=== PATIENT | female | born 1940 | race Hispanic/Latino ===

== ENCOUNTER 2016-09-06 10:49 | Outpatient (CLI) | payer MEDICARE, OTHER ==
[2016-09-06 11:51] LABS: Blood Urea Nitrogen 10 mg/dL (7-17)
[2016-09-06] MEDS ORDERED: NACL ONE ×2 (12:18→12:54)
--- NOTE | 2016-09-06 14:07 | Cat Scan Report ---
CT UPPER EXTREMITY RIGHT WITHOUT CONTRAST History: Right forearm mass. Technique: Helical CT following IV contrast. Sagittal and coronal reformatted images. Findings: A marker is placed in the medial forearm. Underlying this marker is nonspecific subcutaneous fat stranding. There is no defined enhancing mass or fluid collection. This may represent an area of fibrosis. The muscular, osseous and vascular structures of the right forearm are within normal limits. Impression: Nonspecific subcutaneous fat stranding or fibrosis in the medial right forearm as detailed above. No suspicious mass or fluid collection. If further evaluation is needed MRI with contrast would provide more information.
== END 2016-09-06 10:50 | disposition home or self-care (01) ==
LOC: CT 10:49
PROVIDERS: ATTEND Radiology Diagnostic Radiology
DX: D21.11 Benign neoplasm of connective and other soft tissue of right upper limb, including shoulder (principal)
CPT/HCPCS: 36415; 73201; 82565; 84520; Q9967

== ENCOUNTER 2016-10-03 19:03 | Emergency (ER) | payer MEDICARE, OTHER ==
[2016-10-03 19:33] VITALS: BP 186/120
[2016-10-03 20:26] LABS: Hematocrit 39.7 % (30.3-42.9); Hemoglobin 13.1 gm/dl (10.1-14.3); Mean Corpuscular HGB Conc 33 % (30-34); Mean Corpuscular Hemoglobin 30 pg (28-32); Mean Corpuscular Volume 90 fl (79-97); Platelet Count 209 K/mm3 (140-440); Red Blood Count 4.42 M/mm3 (3.65-5.03); Red Cell Distribution Width 14.2 % (13.2-15.2); White Blood Count 7.9 K/mm3 (4.5-11.0)
[2016-10-03 21:02] LABS: Anion Gap 21 mmol/L; Blood Urea Nitrogen 9 mg/dL (7-17); Calcium 8.9 mg/dL (8.4-10.2); Carbon Dioxide 25 mmol/L (22-30); Chloride 97.8 mmol/L (98-107); Glucose 140 mg/dL (65-100); Potassium 4.6 mmol/L (3.6-5.0); Sodium 139 mmol/L (137-145)
[2016-10-03 21:57] LABS: Bacteria,Urine 1+ /HPF (Negative); Bilirubin,Urine NEG (Negative); Blood,Urine NEG (Negative); Ketones,Urine 20 mg/dL (Negative); Leukocyte Esterase,Urine NEG (Negative); Mucus,Urine FEW /HPF; Nitrite,Urine NEG (Negative); Urobilinogen,Urine < 2.0 mg/dL (<2.0)
== END 2016-10-03 23:05 | disposition left against medical advice (07) ==
LOC: ED 19:03
DX: R42 Dizziness and giddiness (principal); Z53.21 Procedure and treatment not carried out due to patient leaving prior to being seen by health care provider
CPT/HCPCS: 36415; 80048; 81001; 85027; 93005; 93010

== ENCOUNTER 2017-05-12 10:27 | Day surgery (SDC) | payer MEDICARE, OTHER ==
[~2017-05-12 10:27] MED LIST: ANCEF/STERILE WATER 2 GM/20 ML 2 GM/20 ML SYRINGE IV NR; NACL 0.9% 1000 ML 1,000 ML IV SCH
[2017-05-12 11:16] LABS: Basophils % (Auto) 0.6 % (0.0-1.8); Eosinophils % (Auto) 3.8 % (0.0-4.3); Hematocrit 39.5 % (30.3-42.9); Hemoglobin 13.1 gm/dl (10.1-14.3); Mean Corpuscular HGB Conc 33 % (30-34); Mean Corpuscular Hemoglobin 30 pg (28-32); Mean Corpuscular Volume 91 fl (79-97); Platelet Count 257 K/mm3 (140-440); Red Blood Count 4.33 M/mm3 (3.65-5.03); Red Cell Distribution Width 13.7 % (13.2-15.2); White Blood Count 5.4 K/mm3 (4.5-11.0)
[2017-05-12 11:33] LABS: INR 1.03 (0.87-1.13)
[2017-05-12 11:34] LABS: Partial Thromboplastin Time 27.5 Sec. (24.2-36.6)
[2017-05-12 13:25] VITALS: BP 151/62
--- NOTE | 2017-05-12 14:54 | Cat Scan Report ---
EXAM: CT-GUIDED BIOPSY OF THE RIGHT FOREARM MASS. CLINICAL INDICATION: PATIENT WITH A HISTORY OF A PROGRESSIVE GROWTH IN THE RIGHT FOREARM MASSES DATE: 05/12/2017 PROCEDURE: Following an explanation of the risks, benefits and alternative; written informed consent was obtained. The patient was brought to the angiographic suite and placed in right lateral oblique position with her arm extended above her head. Initial dehydrator tender images of the arm were performed and the 2 masses within the soft tissue of the right forearm were identified. An appropriate access site was chosen. The patient's right arm was prepped and draped in usual sterile fashion. 1% lidocaine was used for anesthesia. Using intermittent CT guidance, a 5 cm 18-gauge trocar needle was advanced to the margin of the masses. A total of 3 core biopsies were then obtained and handed off to pathologist in attendance. The biopsies were determined to be adequate for analysis. The trocar needle was removed and pressure dressing applied. The patient tolerated the procedure well. There were no immediate post procedure complications. No sedation was utilized at patient's request. Continuous cardiopulmonary monitoring was utilized. IMPRESSION: 1) CT guided biopsy of right forearm mass with 3 core samples obtained and sent for pathologic analysis.
== END 2017-05-12 13:50 | disposition home or self-care (01) ==
LOC: CATHLABREC 10:27
PROVIDERS: ATTEND Radiology Diagnostic Radiology
DX: C49.11 Malignant neoplasm of connective and soft tissue of right upper limb, including shoulder (principal); I10 Essential (primary) hypertension; E78.00 Pure hypercholesterolemia, unspecified; Z79.899 Other long term (current) drug therapy
CPT/HCPCS: 36415; 38505; 77012; 85025; 85610; 85730; 88173; 88305; 88307; 88333; 88342

== ENCOUNTER 2017-10-01 13:39 | Emergency (ER) | payer MEDICARE, OTHER ==
[2017-10-01 13:54] VITALS: BP 122/63
== END 2017-10-01 17:44 | disposition left against medical advice (07) ==
LOC: ED 13:39
DX: M79.605 Pain in left leg (principal); Z53.21 Procedure and treatment not carried out due to patient leaving prior to being seen by health care provider

== ENCOUNTER 2019-08-29 00:37 | Emergency (ER) | payer MEDICARE, OTHER ==
--- NOTE | 2019-08-29 01:08 | Emergency Department Report ---
HPI - General Chief Complaint: Arrhythmia/Palpitations Time Seen by Provider: 08/29/19 00:55 - HPI HPI: 78-year-old female presents to the emergency department via EMS from home after she had some tachycardia and palpitations just prior to arrival. The patient was sitting in a chair when she felt like her heart was racing and at that time she also felt short of breath. EMS was called and found her to have a heart rate of about 180. She denies any chest pain, back pain, fever, nausea, vomiting or diaphoresis. She has a past medical history of hypertension, hyperlipidemia and anxiety/panic attacks. The patient does admit to some recent personal stressors. She denies any tobacco or illicit drug use. She did not take anything or receive anything for her symptoms prior to arrival and the symptoms resolved prior to presentation. No recent travel or sick contacts at home. ED Past Medical Hx - Past Medical History Hx Hypertension: Yes Hx Kidney Stones: Yes (in past) Hx Psychiatric Treatment: Yes (panic attacks) Additional medical history: high cholesterol - Surgical History Hx Cholecystectomy: Yes - Social History Smoking Status: Never Smoker Substance Use Type: None - Medications Home Medications: Home Medications Medication Instructions Recorded Confirmed Last Taken Type Aspirin [Lo-Dose Aspirin EC] 81 mg PO QDAY 05/12/17 05/12/17 05/11/17 History Losartan Potassium 25 mg PO QDAY 05/12/17 05/12/17 05/11/17 History Simvastatin 20 mg PO QHS 05/12/17 05/12/17 05/11/17 History Venlafaxine Xr [Effexor XR] 75 mg PO QDAY 05/12/17 05/12/17 05/11/17 History ED Review of Systems ROS: Stated complaint: CHEST PAIN Other details as noted in HPI Comment: All other systems reviewed and negative Constitutional: denies: chills, fever Eyes: denies: eye pain, vision change Respiratory: shortness of breath. denies: cough Cardiovascular: palpitations. denies: chest pain Gastrointestinal: denies: abdominal pain, vomiting Genitourinary: denies: dysuria, discharge Musculoskeletal: denies: back pain, arthralgia Skin: denies: rash, lesions Neurological: denies: headache, weakness Physical Exam - Physical Exam Physical Exam: GENERAL: The patient is well-developed well-nourished. HENT: Normocephalic. Atraumatic. Patient has moist mucous membranes. Pupils equal reactive to light bilaterally. NECK: Supple. Trachea is midline. CHEST/LUNGS: Clear to auscultation. There is no respiratory distress noted. HEART/CARDIOVASCULAR: Regular. There is no tachycardia. There is no murmur. ABDOMEN: Abdomen is soft, nontender. Patient has normal bowel sounds. There is no abdominal distention. SKIN: Skin is warm and dry. NEURO: The patient is awake, alert, and oriented. The patient is cooperative. The patient has no focal neurologic deficits. Normal speech. MUSCULOSKELETAL: There is no tenderness or deformity. There is no limitation range of motion. There is no evidence of acute injury. ED Course - Reevaluation(s) Reevaluation #1: 08/29/19 04:25 Wells' Criteria for Pulmonary Embolism RESULT SUMMARY: 0.0 points Low risk group: 1.3% chance of PE in an ED population. Another study assigned scores ? 4 as PE Unlikely and had a 3% incidence of PE. INPUTS: Clinical signs and symptoms of DVT > 0 = No PE is #1 diagnosis OR equally likely > 0 = No Heart rate > 100 > 0 = No Immobilization at least 3 days OR surgery in the previous 4 weeks > 0 = No Previous, objectively diagnosed PE or DVT > 0 = No Hemoptysis > 0 = No Malignancy w/ treatment within 6 months or palliative > 0 = No ED Medical Decision Making - Lab Data Result diagrams: 08/29/19 01:10 08/29/19 01:10 - EKG Data -: EKG Interpreted by [facility] EKG shows normal: sinus rhythm, axis, intervals, QRS complexes, ST-T waves Rate: normal - EKG Data When compared to previous EKG there are: previous EKG unavailable Interpretation: normal EKG - Radiology Data Radiology results: image reviewed interpreted by me: Chest x-ray does not show any acute process. There are no pleural effusions, obvious pneumonia and there is no pneumothorax. - Medical Decision Making This patient presents to the emergency department after having some type of tachyarrhythmia and/or palpitations prior to arrival. EMS says that her heart rate was about 180 when they found her but they did not perform any type of EKG or rhythm strip. Since being in the emergency department the patient has a heart rate within normal limits. Heart and lung sounds are normal to auscultation. An EKG done here was normal without ST elevation [place], ischemia or dysrhythmia. Chest x-ray does not show any pleural effusions, pneumonia, pneumothorax, focal consolidation, or any other acute process. Patient's labs are unremarkable including CBC, metabolic panel, TSH, troponin. She was reevaluated multiple times over about 3 hours and there has been no return of palpitations, tachycardia. The patient is low on the Wells score criteria and does not have any obvious risk factors for thromboembolism. For all these reasons the patient appears safe for discharge home at this time. She has been instructed to follow-up with primary care and has been given some referrals for local cardiology groups. She will return to the emergency department immediately with any return of her symptoms or with any acute distress. - Differential Diagnosis Dysrhythmia, DE, electrolyte abnormalities, hyperthyroidism Critical Care Time: No Critical care attestation.: If time is entered above; I have spent that time in minutes in the direct care of this critically ill patient, excluding procedure time. ED Disposition Clinical Impression: Palpitations Disposition: TO HOME OR SELFCARE Is pt being admited?: No Condition: Stable Instructions: Palpitations (ED) Additional Instructions: Please follow-up with your primary care physician in the next few days. I am giving you a referral for 2 different local cardiology groups to follow-up regarding the palpitations. Please return to the emergency department with any further palpitations, development of chest pain or shortness of breath, or with any acute distress. Referrals: PRIMARY CARE, [Primary Care Provider] - 2-3 Days [facility] [Provider Group] - 2-3 Days [facility] [Provider Group] - 2-3 Days Time of Disposition: 03:38
[2019-08-29 01:11] VITALS: BP 148/77
[2019-08-29 01:47] LABS: Basophils % (Auto) 0.4 % (0.0-1.8); Eosinophils # (Auto) 0.3 K/mm3 (0.0-0.4); Eosinophils % (Auto) 4.2 % (0.0-4.3); Hematocrit 40.4 % (30.3-42.9); Hemoglobin 13.4 gm/dl (10.1-14.3); Lymphocytes # (Auto) 1.5 K/mm3 (1.2-5.4); Lymphocytes % (Auto) 22.9 % (13.4-35.0); Mean Corpuscular HGB Conc 33 % (30-34); Mean Corpuscular Volume 91 fl (79-97); Monocytes # (Auto) 0.6 K/mm3 (0.0-0.8); Monocytes % (Auto) 9.4 % (0.0-7.3); Platelet Count 238 K/mm3 (140-440); Red Blood Count 4.43 M/mm3 (3.65-5.03)
[2019-08-29 02:03] LABS: Alanine Aminotransferase 13 units/L (7-56); Albumin 4.4 g/dL (3.9-5); BUN/Creatinine Ratio 26; Blood Urea Nitrogen 18 mg/dL (7-17); Calcium 9.7 mg/dL (8.4-10.2); Hemolysis Index 8
--- NOTE | 2019-08-29 02:22 | XRay Report ---
CHEST 1 VIEW INDICATION / CLINICAL INFORMATION: palpitations. COMPARISON: None available. FINDINGS: SUPPORT DEVICES: None. HEART / MEDIASTINUM: No significant abnormality. LUNGS / PLEURA: No significant pulmonary or pleural abnormality. No pneumothorax. ADDITIONAL FINDINGS: No significant additional findings. IMPRESSION: 1. No significant change Signer Name: Frederic Lamb MD Signed: 08/29/2019 2:17 AM Workstation Name: [id number]
== END 2019-08-29 04:31 | disposition home or self-care (01) ==
LOC: ED 00:37
DX: R00.2 Palpitations (principal); R07.9 Chest pain, unspecified; R00.0 Tachycardia, unspecified; E78.00 Pure hypercholesterolemia, unspecified; F41.0 Panic disorder [episodic paroxysmal anxiety]; Z79.82 Long term (current) use of aspirin; Z79.899 Other long term (current) drug therapy; Z87.442 Personal history of urinary calculi
CPT/HCPCS: 36415; 71045; 80053; 84443; 84484; 85025; 93005; 93010; 99284

== ENCOUNTER 2020-02-16 18:10 | Emergency (ER) | payer MEDICARE, OTHER ==
[2020-02-16 18:39] VITALS: BP 153/71
--- NOTE | 2020-02-16 19:05 | Emergency Department Report ---
Blank Doc - Documentation Documentation: 79-year-old female that presents with SOB. This initial assessment/diagnostic orders/clinical plan/treatment(s) is/are subject to change based on patient's health status, clinical progression and re- assessment by fellow clinical providers in the ED. Further treatment and workup at subsequent clinical providers discretion. Patient/guardians urged not to elope from the ED as their condition may be serious if not clinically assessed and managed. Initial orders include: 1- Patient sent to MAIN ED for further evaluation and treatment 2- cardiac workup
[2020-02-16 19:28] LABS: Basophils % (Auto) 0.5 % (0.0-1.8); Eosinophils # (Auto) 0.1 K/mm3 (0.0-0.4); Eosinophils % (Auto) 1.9 % (0.0-4.3); Hematocrit 37.2 % (30.3-42.9); Hemoglobin 12.5 gm/dl (10.1-14.3); Lymphocytes # (Auto) 0.9 K/mm3 (1.2-5.4); Lymphocytes % (Auto) 15.3 % (13.4-35.0); Mean Corpuscular HGB Conc 34 % (30-34); Mean Corpuscular Volume 90 fl (79-97); Monocytes # (Auto) 0.3 K/mm3 (0.0-0.8); Monocytes % (Auto) 5.2 % (0.0-7.3); Platelet Count 261 K/mm3 (140-440); Red Blood Count 4.12 M/mm3 (3.65-5.03); Red Cell Distribution Width 13.7 % (13.2-15.2)
[2020-02-16 19:38] LABS: INR 1.02 (0.87-1.13); Partial Thromboplastin Time 26.1 Sec. (24.2-36.6)
[2020-02-16 19:48] LABS: Alanine Aminotransferase 13 units/L (7-56); Albumin 4.4 g/dL (3.9-5); Blood Urea Nitrogen 11 mg/dL (7-17); Calcium 9.5 mg/dL (8.4-10.2); Hemolysis Index 5
--- NOTE | 2020-02-16 20:19 | XRay Report ---
CHEST 2 VIEWS INDICATION / CLINICAL INFORMATION: Chest Pain. COMPARISON: 08/29/2019 FINDINGS: SUPPORT DEVICES: None. HEART / MEDIASTINUM: No significant abnormality. LUNGS / PLEURA: No significant pulmonary or pleural abnormality. No pneumothorax. ADDITIONAL FINDINGS: No significant additional findings. IMPRESSION: 1. No acute findings. Signer Name: Montrell Chou MD Signed: 02/16/2020 8:15 PM Workstation Name: [id number]
[2020-02-16 20:20] LABS: BUN/Creatinine Ratio 16
--- NOTE | 2020-02-16 20:43 | Emergency Department Report ---
ED Shortness of Breath HPI - General Chief Complaint: Dyspnea/Respdistress Stated Complaint: SOB Time Seen by Provider: 02/16/20 19:03 Source: patient, EMS Mode of arrival: Ambulatory Limitations: No Limitations - History of Present Illness Initial Comments: This is a 79-year-old female with history of hypertension, kidney stones, panic attacks, hyperlipidemia who presents with shortness of breath fatigue generalized malaise. For the past 4 days she just has not been feeling well. She has mild shortness of breath which began gradually 3 hours prior to arrival. She has traveled in December to see her sister in [place]. She has gone to stores in retail centers on a weekly basis. She lives with her daughter and her . No known sick contacts. She has chronic cough which she attributes to her blood pressure medicine. She denies fever, chills, chest pain, leg pain, abdominal pain, diarrhea. She wanted to make sure that she did not have COVID- 19. MD Complaint: shortness of breath -: Gradual, days(s) (4 days of malaise, several hours of shortness of breath) Severity: mild Consistency: now resolved Improves With: rest Worsens With: nothing Known History Of: other (Patient is healthy) Associated Symptoms: other (Fatigue malaise) Treatments Prior to Arrival: none - Related Data Home Medications Medication Instructions Recorded Confirmed Last Taken Aspirin [Lo-Dose Aspirin EC] 81 mg PO QDAY 05/12/17 05/12/17 05/11/17 Losartan Potassium 25 mg PO QDAY 05/12/17 05/12/17 05/11/17 Simvastatin 20 mg PO QHS 05/12/17 05/12/17 05/11/17 Venlafaxine Xr [Effexor XR] 75 mg PO QDAY 05/12/17 05/12/17 05/11/17 Allergies Allergy/AdvReac Type Severity Reaction Status Date / Time No Known Allergies Allergy Verified 10/03/16 19:30 ED Review of Systems ROS: Stated complaint: SOB Other details as noted in HPI Comment: All other systems reviewed and negative Constitutional: malaise. denies: chills, fever ENT: denies: dental pain Respiratory: shortness of breath. denies: cough Cardiovascular: denies: chest pain Gastrointestinal: denies: abdominal pain, nausea, vomiting ED Past Medical Hx - Past Medical History Previous Medical History?: Yes Hx Hypertension: Yes Hx Kidney Stones: Yes (in past) Hx Psychiatric Treatment: Yes (panic attacks) Additional medical history: high cholesterol - Surgical History Past Surgical History?: Yes Hx Cholecystectomy: Yes - Social History Smoking Status: Never Smoker Substance Use Type: None - Medications Home Medications: Home Medications Medication Instructions Recorded Confirmed Last Taken Type Aspirin [Lo-Dose Aspirin EC] 81 mg PO QDAY 05/12/17 05/12/17 05/11/17 History Losartan Potassium 25 mg PO QDAY 05/12/17 05/12/17 05/11/17 History Simvastatin 20 mg PO QHS 05/12/17 05/12/17 05/11/17 History Venlafaxine Xr [Effexor XR] 75 mg PO QDAY 05/12/17 05/12/17 05/11/17 History ED Physical Exam - General Limitations: No Limitations General appearance: alert, in no apparent distress, other (Speaking full word sentences without difficulty) - Head Head exam: Present: atraumatic, normocephalic - Eye Eye exam: Present: normal appearance - ENT ENT exam: Present: mucous membranes moist - Neck Neck exam: Present: normal inspection, full ROM - Respiratory Respiratory exam: Present: normal lung sounds bilaterally. Absent: respiratory distress, wheezes, rales, rhonchi - Cardiovascular Cardiovascular Exam: Present: regular rate, normal rhythm, normal heart sounds. Absent: systolic murmur, diastolic murmur, rubs, gallop - GI/Abdominal GI/Abdominal exam: Present: soft, normal bowel sounds. Absent: distended, tenderness, guarding, rebound - Extremities Exam Extremities exam: Present: normal inspection - Neurological Exam Neurological exam: Present: alert, oriented X3 - Psychiatric Psychiatric exam: Present: normal affect, normal mood - Skin Skin exam: Present: warm, dry, intact, normal color. Absent: rash ED Course Vital Signs 02/16/20 02/16/20 18:31 19:04 Temperature 97.9 F 97.9 F Pulse Rate 74 74 Respiratory 18 18 Rate Blood Pressure 153/71 Blood Pressure 153/71 [Right] O2 Sat by Pulse 98 98 Oximetry ED Medical Decision Making - Lab Data Result diagrams: 02/16/20 19:09 02/16/20 19:09 Laboratory Results - last 24 hr 02/16/20 02/16/20 02/16/20 19:09 19:09 19:09 WBC 5.9 RBC 4.12 Hgb 12.5 Hct 37.2 MCV 90 MCH 30 MCHC 34 RDW 13.7 Plt Count 261 Lymph % (Auto) 15.3 [place] % (Auto) 5.2 Eos % (Auto) 1.9 Baso % (Auto) 0.5 Lymph # 0.9 L [place] # 0.3 Eos # 0.1 Baso # 0.0 Seg Neutrophils % 77.1 H Seg Neutrophils # 4.6 PT 13.6 INR 1.02 APTT 26.1 Sodium 140 Potassium 4.1 Chloride 101.2 Carbon Dioxide 24 Anion Gap 19 BUN 11 Creatinine 0.7 Estimated GFR > 60 BUN/Creatinine Ratio 16 Glucose 114 H Calcium 9.5 Total Bilirubin 0.50 AST 22 ALT 13 Alkaline Phosphatase 127 Troponin T < 0.010 Total Protein 7.6 Albumin 4.4 Albumin/Globulin Ratio 1.4 - EKG Data -: EKG Interpreted by Co EKG shows normal: sinus rhythm, axis, intervals, QRS complexes, ST-T waves Rate: normal - EKG Data Interpretation: normal EKG 02/16/20 20:41 Normal sinus rhythm normal rate normal axis normal intervals no ST elevation no ST-T signs of ischemia normal EKG EKG interpreted by me obtained 1846 - Radiology Data Radiology results: report reviewed Chest radiograph: No acute findings PA lateral according to radiology report - Medical Decision Making This is a healthy 79-year-old with history of hypertension who presents with generalized malaise fatigue and shortness of breath. She has normal work-up here in the emergency department. Normal chest x-ray. Normal EKG. CBC chemistry troponin within normal limits. Considerations: Pneumonia, COVID-19 infection, pulmonary embolism, ACS. With extensive work-up, I did not detect an emergent cause of her symptoms. I strongly suggested COVID-19 outpatient testing through her PCP considering her current pandemic. Considering fatigue malaise and shortness of breath, atypical infection is most likely cause. Patient has normal vital signs. No notable risk factors for VTE or ACS. Critical care attestation.: If time is entered above; I have spent that time in minutes in the direct care of this critically ill patient, excluding procedure time. ED Disposition Clinical Impression: Dyspnea Disposition: DC-01 TO HOME OR SELFCARE Is pt being admited?: No Does the pt Need Aspirin: No Condition: Stable Additional Instructions: Please ask your doctor for a COVID-19 test. Please return to the ER if your symptoms worsen. Please return to the ER if you develop worsening shortness of breath, chest pain, fever or new symptoms. Referrals: PRIMARY CARE,MD [Primary Care Provider] - 2-3 Days
== END 2020-02-16 20:57 | disposition home or self-care (01) ==
LOC: ED 18:10
DX: R06.00 Dyspnea, unspecified (principal); R06.02 Shortness of breath; R53.83 Other fatigue; R53.81 Other malaise; I10 Essential (primary) hypertension; Z87.442 Personal history of urinary calculi; Z90.49 Acquired absence of other specified parts of digestive tract; Z79.899 Other long term (current) drug therapy
CPT/HCPCS: 36415; 71046; 80053; 84484; 85025; 85610; 85730; 93005

== ENCOUNTER 2020-12-02 17:21 | Emergency (ER) | payer MEDICARE, OTHER ==
[2020-12-02] MEDS ORDERED: ADENOSINE 6 MG/2 ML INJ IV ONE ×2 (17:25→17:26)
[2020-12-02] MEDS ORDERED: SODIUM CHLORIDE 0.9% 1000 ML 1,000 ML IV ONE (17:25)
[2020-12-02] MEDS ORDERED: ASPIRIN 325 MG TAB PO ONE (17:25)
--- NOTE | 2020-12-02 17:47 | Emergency Department Report ---
ED Shortness of Breath HPI - General Chief Complaint: Chest Pain Stated Complaint: TACHYCARDIA Time Seen by Provider: 12/02/20 17:25 Source: EMS Mode of arrival: Stretcher Limitations: No Limitations - History of Present Illness Initial Comments: Patient is a 79-year-old female who states she has had episodes of SVT in the past and approximately an hour prior to arrival she went into SVT again. She is feeling shortness of breath and some heaviness in the throat region. Patient denies being on any medications to control SVT. Patient denies any chest pain nausea vomiting diarrhea. Improves With: nothing Worsens With: nothing Associated Symptoms: denies other symptoms Treatments Prior to Arrival: none - Related Data Home Medications Medication Instructions Recorded Confirmed Last Taken Aspirin [Lo-Dose Aspirin EC] 81 mg PO QDAY 05/12/17 05/12/17 05/11/17 Losartan Potassium 25 mg PO QDAY 05/12/17 05/12/17 05/11/17 Simvastatin 20 mg PO QHS 05/12/17 05/12/17 05/11/17 Venlafaxine Xr [Effexor XR] 75 mg PO QDAY 05/12/17 05/12/17 05/11/17 Previous Rx's Medication Instructions Recorded Last Taken Type Metoprolol [Lopressor TAB] 12.5 mg PO BID #30 tablet 12/02/20 Unknown Rx Allergies Allergy/AdvReac Type Severity Reaction Status Date / Time No Known Allergies Allergy Verified 12/02/20 17:35 ED Review of Systems ROS: Stated complaint: TACHYCARDIA Other details as noted in HPI Comment: All other systems reviewed and negative ED Past Medical Hx - Past Medical History Hx Hypertension: Yes Hx Kidney Stones: Yes (in past) Hx Psychiatric Treatment: Yes (panic attacks) Additional medical history: high cholesterol - Surgical History Hx Cholecystectomy: Yes - Social History Smoking Status: Never Smoker Substance Use Type: None - Medications Home Medications: Home Medications Medication Instructions Recorded Confirmed Last Taken Type Aspirin [Lo-Dose Aspirin EC] 81 mg PO QDAY 05/12/17 05/12/17 05/11/17 History Losartan Potassium 25 mg PO QDAY 05/12/17 05/12/17 05/11/17 History Simvastatin 20 mg PO QHS 05/12/17 05/12/17 05/11/17 History Venlafaxine Xr [Effexor XR] 75 mg PO QDAY 05/12/17 05/12/17 05/11/17 History Metoprolol [Lopressor TAB] 12.5 mg PO BID #30 tablet 12/02/20 Unknown Rx ED Physical Exam - General Limitations: No Limitations General appearance: alert, in no apparent distress - Head Head exam: Present: atraumatic, normocephalic - Eye Eye exam: Present: normal appearance, PERRL, EOMI - ENT ENT exam: Present: mucous membranes moist - Neck Neck exam: Present: normal inspection - Respiratory Respiratory exam: Present: respiratory distress. Absent: normal lung sounds bilaterally, wheezes, rales, rhonchi, stridor - Cardiovascular Cardiovascular Exam: Present: regular rate, tachycardia. Absent: systolic murmur, diastolic murmur, rubs, gallop - GI/Abdominal GI/Abdominal exam: Present: soft, normal bowel sounds. Absent: distended, tenderness, guarding, rebound - Extremities Exam Extremities exam: Present: normal inspection - Back Exam Back exam: Present: normal inspection - Neurological Exam Neurological exam: Present: alert, oriented X3 - Psychiatric Psychiatric exam: Present: normal affect, normal mood - Skin Skin exam: Present: warm, dry, intact, normal color. Absent: rash ED Course Vital Signs 12/02/20 17:20 Temperature 98.6 F Pulse Rate 180 H Respiratory 20 Rate Blood Pressure 115/58 [Right] O2 Sat by Pulse 97 Oximetry - Reevaluation(s) Reevaluation #1: 12/02/20 17:44 Line was established when the patient arrived in the left antecubital fossa. Adenosine was ordered. Before being pushed the patient coughed several times. While coughing and did appear briefly that she was in V. tach however when she stopped coughing after several seconds patient was in normal sinus rhythm. Patient is remained in normal sinus rhythm we will keep the patient on monitor and continue to evaluate Reevaluation #2: 12/02/20 18:51 Patient is feeling much improved after converting back to normal sinus. Heart rates remained in the 90s. I will start the patient on low-dose metoprolol to see if this will help with rate control and the patient be referred to cardiology for further management. ED Medical Decision Making - Lab Data Result diagrams: 12/02/20 17:25 12/02/20 17:25 Lab Results 12/02/20 12/02/2021 Range/Units 17:25 17:25 17:25 WBC 7.1 (4.5-11.0) K/mm3 RBC 4.36 (3.65-5.03) M/mm3 Hgb 11.8 (10.1-14.3) gm/dl Hct 36.0 (30.3-42.9) % MCV 83 (79-97) fl MCH 27 L (28-32) pg MCHC 33 (30-34) % RDW 15.7 H (13.2-15.2) % Plt Count 261 (140-440) K/mm3 Lymph % (Auto) 16.4 (13.4-35.0) % [place] % (Auto) 7.3 (0.0-7.3) % Eos % (Auto) 1.2 (0.0-4.3) % Baso % (Auto) 0.2 (0.0-1.8) % Lymph # (Auto) 1.2 (1.2-5.4) K/mm3 [place] # (Auto) 0.5 (0.0-0.8) K/mm3 Eos # (Auto) 0.1 (0.0-0.4) K/mm3 Baso # (Auto) 0.0 (0.0-0.1) K/mm3 Seg Neutrophils % 74.9 H (40.0-70.0) % Seg Neutrophils # 5.3 (1.8-7.7) K/mm3 PT 14.4 (12.2-14.9) Sec. INR 1.07 (0.87-1.13) APTT 26.2 (24.2-36.6) Sec. Sodium 140 (137-145) mmol/L Potassium 3.9 (3.6-5.0) mmol/L Chloride 100.9 (98-107) mmol/L Carbon Dioxide 23 (22-30) mmol/L Anion Gap 20 mmol/L BUN 9 (7-17) mg/dL Creatinine 0.7 (0.6-1.2) mg/dL Estimated GFR > 60 ml/min BUN/Creatinine Ratio 13 % Glucose 108 H (65-100) mg/dL Calcium 9.6 (8.4-10.2) mg/dL Total Bilirubin 0.40 (0.1-1.2) mg/dL AST 20 (5-40) units/L ALT 13 (7-56) units/L Alkaline Phosphatase 136 H (35-129) units/L Troponin T < 0.010 (0.00-0.029) ng/mL Total Protein 6.9 (6.3-8.2) g/dL Albumin 4.5 (3.9-5) g/dL Albumin/Globulin Ratio 1.9 % - EKG Data 12/02/20 17:45 EKG on arrival 1726 shows SVT with a rate of 182. [place] is normal QTC was prolonged. Appear to be some ST depression diffusely. Repeat EKG is 1739 shows a sinus rhythm with a rate of 97. [place] normal intervals are normal no ST segment elevations. Possible [address] depression laterally. Critical care attestation.: If time is entered above; I have spent that time in minutes in the direct care of this critically ill patient, excluding procedure time. ED Disposition Clinical Impression: SVT (supraventricular tachycardia) Disposition: - TO HOME OR SELFCARE Is pt being admited?: No Does the pt Need Aspirin: No Condition: Stable Instructions: Supraventricular Tachycardia, Adult Prescriptions: Metoprolol [Lopressor TAB] 12.5 mg PO BID #30 tablet Referrals: MARCUS SAUL [Staff Physician] - 3-5 Days Time of Disposition: 18:54
[2020-12-02 18:02] LABS: Basophils % (Auto) 0.2 % (0.0-1.8); Eosinophils # (Auto) 0.1 K/mm3 (0.0-0.4); Eosinophils % (Auto) 1.2 % (0.0-4.3); Hemoglobin 11.8 gm/dl (10.1-14.3); Lymphocytes # (Auto) 1.2 K/mm3 (1.2-5.4); Lymphocytes % (Auto) 16.4 % (13.4-35.0); Mean Corpuscular HGB Conc 33 % (30-34); Mean Corpuscular Volume 83 fl (79-97); Monocytes # (Auto) 0.5 K/mm3 (0.0-0.8); Monocytes % (Auto) 7.3 % (0.0-7.3); Platelet Count 261 K/mm3 (140-440); Red Blood Count 4.36 M/mm3 (3.65-5.03); Red Cell Distribution Width 15.7 % (13.2-15.2)
[2020-12-02 18:11] LABS: INR 1.07 (0.87-1.13)
[2020-12-02 18:12] LABS: Partial Thromboplastin Time 26.2 Sec. (24.2-36.6)
[2020-12-02 18:22] LABS: Alanine Aminotransferase 13 units/L (7-56); Albumin 4.5 g/dL (3.9-5); Blood Urea Nitrogen 9 mg/dL (7-17); Calcium 9.6 mg/dL (8.4-10.2); Hemolysis Index 6
[2020-12-02 18:27] LABS: BUN/Creatinine Ratio 13
[2020-12-02 19:29] VITALS: BP 153/66
--- NOTE | 2020-12-10 11:00 | Electrocardiograph Report ---
[facility] Test Date: 2020-12-02 Test Time: 17:26:40 Pat Name: RODERICK POOLE Department: Room: Gender: F Grocery Buyer: KEATON : 1940 Requested By: KERRY ALEJANDRE Order Number: [id number] Reading MD: Ramírez Juárez Measurements Intervals [place] Rate: 182 P: 121 FL: 117 QRS: 89 QRSD: 96 T: -8 QT: 295 QTc: 512 Interpretive Statements Supraventricular tachycardia Diffuse ST depression, prob rate related versus acute ischemia No previous ECG available for comparison Electronically Signed On 12-10-2020 11:00:29 EDT by Ramírez Juárez
--- NOTE | 2020-12-10 11:01 | Electrocardiograph Report ---
[facility] Test Date: 2020-12-02 Test Time: 17:36:49 Pat Name: RODERICK POOLE Department: Room: Gender: F Machine Dyer: KEATON : 1940 Requested By: KERRY ALEJANDRE Order Number: [id number] Reading MD: Ramírez Juárez Measurements Intervals [place] Rate: 97 P: 64 SD: 152 QRS: 87 QRSD: 99 T: 9 QT: 366 QTc: 465 Interpretive Statements Sinus rhythm Minimal ST depression, diffuse leads Compared to ECG 12/02/2020 17:26:40 Supraventricular tachycardia no longer present Electronically Signed On 12-10-2020 11:00:57 EDT by Ramírez Juárez
== END 2020-12-02 19:28 | disposition home or self-care (01) ==
LOC: ED 17:21
DX: I47.1 Supraventricular tachycardia (principal); I10 Essential (primary) hypertension; Z90.49 Acquired absence of other specified parts of digestive tract; Z79.899 Other long term (current) drug therapy
CPT/HCPCS: 36415; 80053; 84484; 85025; 85610; 85730; 93005; 99284; J0153; J7030

== ENCOUNTER 2021-03-27 14:50 | Emergency (ER) | payer MEDICARE, OTHER ==
--- NOTE | 2021-03-27 15:10 | Emergency Department Report ---
HPI - General Time Seen by Provider: 03/27/21 14:54 - HPI HPI: Room 3 The patient is a 80-year-old female present with a chief complaint of SVT. The patient states she was in her usual state of health this afternoon when she developed palpitations while walking to her living room. Patient states she used her monitor and show she had a heart rate of 201 bpm. Patient has a history of SVTs and states her last episode occurred several months ago. EMS was called and arrived on scene to find the patient in SVT with a heart rate in the 200s and states the patient responded to vagal maneuvers. Upon arrival to the ED patient has a heart rate in the 80s and is asymptomatic. Patient denied ever having chest pain or shortness of breath with her palpitations. I asked how she is feeling down the patient states she feels okay. The patient states she has been compliant with her metoprolol 25 mg daily ED Past Medical Hx - Past Medical History Hx Hypertension: Yes Hx Kidney Stones: Yes (in past) Hx Psychiatric Treatment: Yes (panic attacks) Additional medical history: high cholesterol, PSVT - Surgical History Hx Cholecystectomy: Yes - Family History Family history: no significant - Social History Smoking Status: Never Smoker Substance Use Type: None - Medications Home Medications: Home Medications Medication Instructions Recorded Confirmed Last Taken Type Losartan Potassium 25 mg PO QDAY 05/12/17 05/12/17 05/11/17 History Simvastatin 20 mg PO QHS 05/12/17 05/12/17 05/11/17 History Venlafaxine Xr [Effexor XR] 75 mg PO QDAY 05/12/17 05/12/17 05/11/17 History Metoprolol [Lopressor TAB] 25 mg PO DAILY 03/27/21 03/27/21 Unknown History ED Review of Systems ROS: Stated complaint: CHEST PALPATATION Other details as noted in HPI Constitutional: no symptoms reported Eyes: denies: eye pain ENT: denies: throat pain Respiratory: denies: shortness of breath Cardiovascular: palpitations. denies: chest pain Endocrine: no symptoms reported Gastrointestinal: denies: abdominal pain Genitourinary: denies: dysuria Musculoskeletal: denies: back pain Neurological: denies: headache Physical Exam - Physical Exam Physical Exam: GENERAL: The patient is well-developed well-nourished female sitting on stretcher not appearing to be in acute distress. [] HEENT: Normocephalic. Atraumatic. Extraocular motions are intact. Patient has moist mucous membranes. NECK: Supple. Trachea midline CHEST/LUNGS: Clear to auscultation. There is no respiratory distress noted. HEART/CARDIOVASCULAR: Regular. There is no tachycardia. There is no gallop rub or murmur. ABDOMEN: Abdomen is soft, nontender. Patient has normal bowel sounds. There is no abdominal distention. SKIN: There is no rash. There is no edema. There is no diaphoresis. NEURO: The patient is awake, alert, and oriented. The patient is cooperative. The patient has no focal neurologic deficits. The patient has normal speech. GCS 15 MUSCULOSKELETAL: There is no evidence of acute injury. ED Course - Consultations Consultation #1: 03/27/21 16:14 Cardiology paged 03/27/21 17:08 Case discussed with chemistry instructor Dr. Christian- states patient should follow-up in the office ED Medical Decision Making - Lab Data Result diagrams: 03/27/21 15:17 03/27/21 15:17 Laboratory Tests 03/27/21 03/27/21 03/27/21 15:17 15:17 15:17 WBC 5.1 RBC 4.70 Hgb 14.4 H Hct 42.8 MCV 91 MCH 31 MCHC 34 RDW 15.6 H Plt Count 223 Lymph % (Auto) 18.9 [place] % (Auto) 6.0 Eos % (Auto) 3.1 Baso % (Auto) 0.3 Lymph # (Auto) 1.0 L [place] # (Auto) 0.3 Eos # (Auto) 0.2 Baso # (Auto) 0.0 Seg Neutrophils % 71.7 H Seg Neutrophils # 3.6 Sodium 143 Potassium 4.2 Chloride 105.1 Carbon Dioxide 25 Anion Gap 17 BUN 10 Creatinine 0.6 Estimated GFR > 60 BUN/Creatinine Ratio 17 Glucose 131 H Calcium 9.5 Magnesium 2.20 Total Creatine Kinase 42 CK-MB (CK-2) 1.1 CK-MB (CK-2) Rel Index 2.6 Troponin T < 0.010 TSH 2.700 Free T4 1.01 - EKG Data -: EKG Interpreted by La EKG shows normal: sinus rhythm, axis Rate: normal (74 bpm) - EKG Data When compared to previous EKG there are: previous EKG unavailable Interpretation: other (No ischemic changes seen) - Radiology Data Radiology results: report reviewed (Chest x-ray), image reviewed (Chest x-ray) interpreted by me: Chest x-ray-no definite focal infiltrates, no pneumothorax. [facility] [address] [place] [address] XRay Report Signed Patient: RODERICK POOLE MR#: [id number] : 1940 Acct:[id number] Age/Sex: 80 / F ADM Date: 03/27/21 Loc: ED Attending Dr: Ordering Physician: AMY YOO MD Date of Service: 03/27/21 Procedure(s): XR chest 1V ap Accession Number(s): [id number] cc: AMY YOO MD Fluoro Time In Minutes: CHEST 1 VIEW 03/27/2021 3:22 PM INDICATION / CLINICAL INFORMATION: Palpitations. COMPARISON: 02/16/2020 FINDINGS: SUPPORT DEVICES: None. HEART / MEDIASTINUM: No significant abnormality. LUNGS / PLEURA: No significant pulmonary or pleural abnormality. No pneumothorax. ADDITIONAL FINDINGS: No significant additional findings. IMPRESSION: 1. No acute findings. Signer Name: Brayan Valdivia DO Signed: 03/27/2021 3:44 PM Workstation Name: [id number] Transcribed By: JULIET Dictated By: BRAYAN VALDIVIA DO Electronically Authenticated By: BRAYAN VALDIVIA DO Signed Date/Time: 03/27/21 154 DD/ 42 TD/TT: Print Cancel - Differential Diagnosis PSVT Critical care attestation.: If time is entered above; I have spent that time in minutes in the direct care of this critically ill patient, excluding procedure time. ED Disposition Clinical Impression: PSVT (paroxysmal supraventricular tachycardia) Disposition: 01 HOME / SELF CARE / HOMELESS Is pt being admited?: No Does the pt Need Aspirin: No Condition: Stable Instructions: Supraventricular Tachycardia, Adult Additional Instructions: Return to the emergency department should you develop worsening symptoms, inability to tolerate food or liquids, high fever or any other concerns Referrals: JIMMY PINTO MD [Staff Physician] - 3-5 Days Time of Disposition: 17:08
[2021-03-27 15:38] LABS: Basophils % (Auto) 0.3 % (0.0-1.8); Eosinophils # (Auto) 0.2 K/mm3 (0.0-0.4); Eosinophils % (Auto) 3.1 % (0.0-4.3); Hematocrit 42.8 % (30.3-42.9); Hemoglobin 14.4 gm/dl (10.1-14.3); Lymphocytes % (Auto) 18.9 % (13.4-35.0); Mean Corpuscular HGB Conc 34 % (30-34); Mean Corpuscular Volume 91 fl (79-97); Monocytes # (Auto) 0.3 K/mm3 (0.0-0.8); Platelet Count 223 K/mm3 (140-440); Red Cell Distribution Width 15.6 % (13.2-15.2)
--- NOTE | 2021-03-27 15:48 | XRay Report ---
CHEST 1 VIEW 03/27/2021 3:22 PM INDICATION / CLINICAL INFORMATION: Palpitations. COMPARISON: 02/16/2020 FINDINGS: SUPPORT DEVICES: None. HEART / MEDIASTINUM: No significant abnormality. LUNGS / PLEURA: No significant pulmonary or pleural abnormality. No pneumothorax. ADDITIONAL FINDINGS: No significant additional findings. IMPRESSION: 1. No acute findings. Signer Name: Brayan Ruiz DO Signed: 03/27/2021 3:44 PM Workstation Name: [id number]
[2021-03-27 15:53] LABS: Blood Urea Nitrogen 10 mg/dL (7-17); Calcium 9.5 mg/dL (8.4-10.2); Creatine Kinase MB 1.1 ng/mL (0.0-4.0); Hemolysis Index 6
[2021-03-27 15:55] LABS: BUN/Creatinine Ratio 17
[2021-03-27 16:03] LABS: Free T4 (Free Thyroxine) 1.01 ng/dL (0.76-1.46)
[2021-03-27 16:24] VITALS: BP 155/78
--- NOTE | 2021-03-30 11:10 | Electrocardiograph Report ---
[facility] Test Date: 2021-03-27 Test Time: 15:46:19 Pat Name: RODERICK POOLE Department: Room: Gender: F Sensitized Paper Tester: EM : 1940 Requested By: AMY YOO Order Number: [id number] Reading MD: Ramírez Juárez Measurements Intervals [place] Rate: 74 P: -29 SD: 145 QRS: 81 QRSD: 101 T: 50 QT: 404 QTc: 449 Interpretive Statements Sinus rhythm Nonspecific ST segment changes Compared to ECG 12/02/2020 17:36:49 No significant change Electronically Signed On 03-30-2021 11:10:34 EDT by Ramírez Juárez
== END 2021-03-27 17:56 | disposition home or self-care (01) ==
LOC: ED 14:50
DX: I47.1 Supraventricular tachycardia (principal); I10 Essential (primary) hypertension; Z90.49 Acquired absence of other specified parts of digestive tract
CPT/HCPCS: 36415; 71045; 80048; 82550; 82553; 83735; 84439; 84443; 84484; 85025; 93005; 99284

== ENCOUNTER 2021-09-16 09:03 | Observation (INO) | payer MEDICARE, OTHER ==
[2021-09-16] MEDS ORDERED: MORPHINE 4 MG/1 ML INJ IV ONE (09:20)
[2021-09-16] MEDS ORDERED: ONDANSETRON 4 MG/2 ML INJ IV ONE (09:20)
--- NOTE | 2021-09-16 09:24 | Emergency Department Report ---
ED Back Pain/Injury HPI - General Chief Complaint: Abdominal Pain Stated Complaint: abdominal pain Time Seen by Provider: 09/16/21 09:12 Source: patient, EMS Limitations: No Limitations - History of Present Illness Initial Comments: Chief complaint: Back pain HPI: This is a 80-year-old female with history of SVT, hypertension, kidney stones, hyperlipidemia who presents with left flank pain radiating to the left lower quadrant since this morning. Severe sharp 9/10. No hematuria. No urinary retention. No fever. No vomiting. Patient presents via EMS. MD Complaint: back pain -: Gradual, This morning Similar Symptoms Previously: No Place: home Radiation: abdomen (Left lower quadrant) Severity: severe Severity scale (0 -10): 9 Quality: sharp Consistency: constant Improves With: none Worsens With: none Context: other (History of kidney stones) Associated Symptoms: denies other symptoms Treatments Prior to Arrival: other (EMS transport) - Related Data Home Medications Medication Instructions Recorded Confirmed Last Taken Losartan Potassium 25 mg PO QDAY 05/12/17 09/16/21 05/11/17 Simvastatin 20 mg PO QHS 05/12/17 09/16/21 05/11/17 Venlafaxine Xr [Effexor XR] 75 mg PO QDAY 05/12/17 09/16/21 05/11/17 Metoprolol [Lopressor TAB] 25 mg PO DAILY 03/27/21 09/16/21 Unknown Allergies Allergy/AdvReac Type Severity Reaction Status Date / Time No Known Allergies Allergy Verified 09/16/21 09:08 ED Review of Systems ROS: Stated complaint: abdominal pain Other details as noted in HPI Comment: All other systems reviewed and negative Constitutional: denies: chills, fever, malaise Respiratory: denies: cough, shortness of breath Cardiovascular: denies: chest pain Gastrointestinal: abdominal pain. denies: nausea, vomiting, diarrhea Musculoskeletal: back pain ED Past Medical Hx - Past Medical History Previous Medical History?: Yes Hx Hypertension: Yes Hx Kidney Stones: Yes (in past) Hx Psychiatric Treatment: Yes (panic attacks) Additional medical history: high cholesterol, PSVT - Surgical History Past Surgical History?: Yes Hx Cholecystectomy: Yes Additional Surgical History: Left ear surgery, right upper arm surgery - Family History Family history: other (Noncontributory to this presentation) - Social History Smoking Status: Never Smoker Substance Use Type: None - Medications Home Medications: Home Medications Medication Instructions Recorded Confirmed Last Taken Type Losartan Potassium 25 mg PO QDAY 05/12/17 09/16/21 05/11/17 History Simvastatin 20 mg PO QHS 05/12/17 09/16/21 05/11/17 History Venlafaxine Xr [Effexor XR] 75 mg PO QDAY 05/12/17 09/16/21 05/11/17 History Metoprolol [Lopressor TAB] 25 mg PO DAILY 03/27/21 09/16/21 Unknown History ED Physical Exam - General Limitations: No Limitations General appearance: alert, in no apparent distress - Head Head exam: Present: atraumatic, normocephalic - Eye Eye exam: Present: normal appearance - ENT ENT exam: Present: mucous membranes moist - Neck Neck exam: Present: normal inspection, full ROM - Respiratory Respiratory exam: Present: normal lung sounds bilaterally. Absent: respiratory distress, wheezes, rales, rhonchi - Cardiovascular Cardiovascular Exam: Present: regular rate, normal rhythm, normal heart sounds. Absent: systolic murmur, diastolic murmur, rubs, gallop - GI/Abdominal GI/Abdominal exam: Present: soft, normal bowel sounds. Absent: distended, tenderness, guarding, rebound - Extremities Exam Extremities exam: Present: normal inspection - Back Exam Back exam: Present: normal inspection, full ROM. Absent: tenderness, CVA tenderness (R), CVA tenderness (L), muscle spasm, paraspinal tenderness, vertebral tenderness - Neurological Exam Neurological exam: Present: alert, oriented X3 - Psychiatric Psychiatric exam: Present: normal affect, normal mood - Skin Skin exam: Present: warm, dry, intact, normal color. Absent: rash ED Course Vital Signs 09/16/21 09/16/21 09/16/21 09:04 09:07 09:28 Temperature 98.4 F Pulse Rate 60 60 Respiratory 16 20 19 Rate Blood Pressure Blood Pressure 186/70 186/70 [Left] O2 Sat by Pulse 98 98 Oximetry 09/16/21 09/16/21 09/16/21 09:31 09:33 10:38 Temperature Pulse Rate 66 65 Respiratory 19 15 Rate Blood Pressure Blood Pressure 176/64 [Left] O2 Sat by Pulse 96 96 94 Oximetry 09/16/21 09/16/21 09/16/21 10:41 10:45 11:01 Temperature Pulse Rate 67 61 Respiratory 22 14 Rate Blood Pressure 180/65 189/72 Blood Pressure 185/66 [Left] O2 Sat by Pulse 98 91 Oximetry 09/16/21 09/16/21 09/16/21 11:10 11:15 11:31 Temperature Pulse Rate 68 58 L Respiratory 15 14 19 Rate Blood Pressure 189/72 167/67 Blood Pressure [Left] O2 Sat by Pulse 97 91 Oximetry 09/16/21 09/16/21 09/16/21 11:45 12:01 12:15 Temperature Pulse Rate 57 L 61 58 L Respiratory 17 20 18 Rate Blood Pressure 167/67 153/50 153/50 Blood Pressure [Left] O2 Sat by Pulse 89 93 93 Oximetry 09/16/21 09/16/21 12:31 12:45 Temperature Pulse Rate 63 Respiratory 13 Rate Blood Pressure 158/42 158/42 Blood Pressure [Left] O2 Sat by Pulse 96 95 Oximetry ED Medical Decision Making - Lab Data Result diagrams: 09/16/21 10:25 09/16/21 10:25 - EKG Data -: EKG Interpreted by Al EKG shows normal: sinus rhythm, axis, intervals, QRS complexes Rate: normal - EKG Data Interpretation: nonspecific ST-T wave josé 09/16/21 10:50 EKG obtained 1033 EKG interpreted by mi Rate 65 bpm normal sinus rhythm normal axis prolonged QTC no ST elevation nonspecific T wave pattern - Radiology Data Radiology results: report reviewed Patient Name: RODERICK POOLE Gender: Female Date of : 1940 Referring Provider: MARY CARMEN ALEJANDRE Organization: [facility] Accession Number: [id number] Requested Date: September 16, 2021 09:20 Report Status: Final Requested Procedure: 1 Procedure Description: CT abdomen pelvis wo con Modality: CT Findings Reporting MD: Gabino Velasquez Dictation Time: September 16, 2021 09:08 Shovel Mechanic: Not available Fisher Spear Date: CT ABDOMEN AND PELVIS WITHOUT CONTRAST INDICATION / CLINICAL INFORMATION: Severe left flank pain left lower quadrant. TECHNIQUE: Axial CT images were obtained through the abdomen and pelvis without IV contrast. Sagittal and coronal reformatted images. All CT scans at this location are performed using CT dose reduction for ALARA by means of automated exposure control. COMPARISON: None available. FINDINGS: LOWER CHEST: There is minor subpleural scarring in the right middle lobe. The lung bases are otherwise clear. LIVER: No significant abnormality. GALLBLADDER: Surgically removed. BILE DUCTS: No significant abnormality. PANCREAS: No significant abnormality. SPLEEN: No significant abnormality. ADRENALS: No significant abnormality. RIGHT KIDNEY and URETER: A 4 mm calyceal stone near the upper pole. 1 cm cyst near the upper pole. No ureteral stones or hydronephrosis. LEFT KIDNEY and URETER: 5 mm calyceal stone at the lower pole. There are 2 stone s in the left ureter. A 1 mm stone is identified in the proximal left ureter on image 81, series 2. A 4.3 mm stone is identified in the mid left ureter on image 95. There is mild upstream left hydronephrosis. STOMACH and SMALL BOWEL: No significant abnormality. COLON: Moderate sigmoid diverticulosis. No acute inflammation or obstruction. APPENDIX: No significant abnormality. PERITONEUM: No free fluid. No free air. No fluid collection. LYMPH NODES: No significant adenopathy. AORTA and ARTERIES: Mild atherosclerotic calcification without acute abnormality. IVC and VEINS: No significant abnormality. URINARY BLADDER: No significant abnormality. REPRODUCTIVE ORGANS: No significant abnormality. ADDITIONAL FINDINGS: None. SKELETAL SYSTEM: Mild osteopenia. Mild to moderate lumbar spondylosis. IMPRESSION: Mildly obstructing left nephrolithiasis as described above. Nonobstructing right nephrolithiasis. Sigmoid diverticulosis. Lumbar spondylosis. [facility] [address], [address] [place] [address] P [phone] F [phone] [facility] - Report exported on Sep 16, 2021 12:17:03 -0500 - Page 2 of 2 Signer Name: Gabino Velasquez Jr, MD Signed: 09/16/2021 9:08 AM Workstation Name: [id number] - Medical Decision Making 1. Renal colic due to 2 small ureteral stones left side. Pain easily contr olled. No indication of sepsis or infection. 2. Patient developed chest pain radiating to the back while in the emergency department. EKG without ST elevation. Troponin negative. Patient's pain feels like gas. Heart score 5. Will admit to rule out ACS. Critical care attestation.: If time is entered above; I have spent that time in minutes in the direct care of this critically ill patient, excluding procedure time. ED Disposition Clinical Impression: Acute coronary syndrome, Renal colic on left side Disposition: 09 ADMITTED INPATIENT Is pt being admited?: Yes Does the pt Need Aspirin: No Condition: Stable Instructions: Abdominal Pain (ED) HEART Score - HEART Score History: Moderately suspicious EKG: Non-specific Age: > 65 Risk factors: 1-2 risk factors Troponin: Troponin T < 0.010 ng/mL (0.00-0.029) 09/16/21 10:25 Troponin: < normal limit HEART Score: 5 - Critical Actions Critical Actions: 4-6 pts:12-16.6% risk of adverse cardiac event. Should be admitted
--- NOTE | 2021-09-16 10:12 | Cat Scan Report ---
CT ABDOMEN AND PELVIS WITHOUT CONTRAST INDICATION / CLINICAL INFORMATION: Severe left flank pain left lower quadrant. TECHNIQUE: Axial CT images were obtained through the abdomen and pelvis without IV contrast. Sagittal and smallwood l reformatted images. All CT scans at this location are performed using CT dose reduction for ALARA b y means of automated exposure control. COMPARISON: None available. FINDINGS: LOWER CHEST: There is minor subpleural scarring in the right middle lobe. The lung bases are otherwis e clear. LIVER: No significant abnormality. GALLBLADDER: Surgically removed. BILE DUCTS: No significant abnormality. PANCREAS: No significant abnormality. SPLEEN: No significant abnormality. ADRENALS: No significant abnormality. RIGHT KIDNEY and URETER: A 4 mm calyceal stone near the upper pole. 1 cm cyst near the upper pole. No ureteral stones or hydronephrosis. LEFT KIDNEY and URETER: 5 mm calyceal stone at the lower pole. There are 2 stones in the left ureter. A 1 mm stone is identified in the proximal left ureter on image 81, series 2. A 4.3 mm stone is iden tified in the mid left ureter on image 95. There is mild upstream left hydronephrosis. STOMACH and SMALL BOWEL: No significant abnormality. COLON: Moderate sigmoid diverticulosis. No acute inflammation or obstruction. APPENDIX: No significant abnormality. PERITONEUM: No free fluid. No free air. No fluid collection. LYMPH NODES: No significant adenopathy. AORTA and ARTERIES: Mild atherosclerotic calcification without acute abnormality. IVC and VEINS: No significant abnormality. URINARY BLADDER: No significant abnormality. REPRODUCTIVE ORGANS: No significant abnormality. ADDITIONAL FINDINGS: None. SKELETAL SYSTEM: Mild osteopenia. Mild to moderate lumbar spondylosis. IMPRESSION: Mildly obstructing left nephrolithiasis as described above. Nonobstructing right nephrolithiasis. Sigmoid diverticulosis. Lumbar spondylosis. Signer Name: Gabino Velasquez Jr, MD Signed: 09/16/2021 10:08 AM Workstation Name: [id number]
[2021-09-16 10:53] LABS: Hematocrit 42.5 % (30.3-42.9); Hemoglobin 13.5 gm/dl (10.1-14.3); Mean Corpuscular HGB Conc 32 % (30-34); Mean Corpuscular Volume 93 fl (79-97); Platelet Count 252 K/mm3 (140-440); Red Blood Count 4.57 M/mm3 (3.65-5.03); Red Cell Distribution Width 14.1 % (13.2-15.2)
[2021-09-16] MEDS ORDERED: PANTOPRAZOLE 40 MG INJ IV ONE (10:59)
[2021-09-16] MEDS ORDERED: ALUM-MAG HYDROXIDE-SIMETHICONE 200-200-20MG/5ML ORAL LIQD 30 ML PO ONE (10:59)
[2021-09-16] MEDS ORDERED: LIDOCAINE VISCOUS 2% 15 ML ORAL LIQD PO ONE (10:59)
[2021-09-16] MEDS ORDERED: ACETAMINOPHEN 500 MG TAB PO ONE (10:59)
[2021-09-16 11:01] LABS: Blood Urea Nitrogen 11 mg/dL (7-17); Calcium 9.8 mg/dL (8.4-10.2); Hemolysis Index 10
[2021-09-16 11:05] LABS: BUN/Creatinine Ratio 18
--- NOTE | 2021-09-16 11:27 | Electrocardiograph Report ---
[facility] Test Date: 2021-09-16 Test Time: 10:33:20 Pat Name: RODERICK POOLE Department: Room: Gender: F Legal Practice Manager: BIBI : 1940 Requested By: MARY CARMEN ALEJANDRE Order Number: [id number] Reading MD: Michael Paul Measurements Intervals [place] Rate: 67 P: 86 [place]: 187 QRS: 65 QRSD: 108 T: 35 QT: 451 QTc: 475 Interpretive Statements Sinus rhythm Compared to ECG 03/27/2021 15:46:19 No significant changes Electronically Signed On 09-16-2021 11:27:40 EDT by Michael Paul
[2021-09-16 11:29] LABS: Basophils % (Manual) 0 % (0.0-1.8); RBC Morphology Normal; Total Cells Counted 100
[2021-09-16 11:30] LABS: Platelet Estimate Consistent w Auto
[2021-09-16 15:59] LABS: Bacteria,Urine 1+ /HPF (Negative); Bilirubin,Urine NEG (Negative); Blood,Urine LG (Negative); Color,Urine Yellow (Yellow); Mucus,Urine 2+ /HPF; Urobilinogen,Urine < 2.0 mg/dL (<2.0)
[2021-09-16 16:00] LABS: RBC,Urine > 182.0 /HPF (0.0-6.0)
--- NOTE | 2021-09-16 20:44 | History and Physical Report ---
History of Present Illness Date of examination: 09/16/21 Date of admission: 09/16/2021 Chief complaint: Left flank pain since a.m. Chest pain while in the emergency room History of present illness: 80-year-old female with history of hypertension, hyperlipidemia and depression comes in for left flank pain radiating to the left lower quadrant since a.m. Pain is about 9 on a scale of 1-10. Sharp in nature. No nausea or vomiting. No urinary retention. While in the emergency room patient developed retrosternal chest pain radiating to the back. No diaphoresis. No shortness of breath. No fever or chills. Covid vaccination status not known. - Past Medical History --Previous Medical History?: Yes --Hypertension: Yes --Kidney Stones: Yes (in past) --Psychiatric Treatment: Yes (panic attacks) --Additional medical history: high cholesterol, PSVT - Surgical History --Past Surgical History?: Yes --Cholecystectomy: Yes --Additional Surgical History: Left ear surgery, right upper arm surgery - Family History --Family history: other (Noncontributory to this presentation) - Social History --Smoking Status: Never Smoker --Substance Use Type: None - Medications Home Medications: Home Medications Medication Instructions Recorded Confirmed Last Taken Type Losartan Potassium 25 mg PO QDAY 05/12/17 09/16/21 05/11/17 History Simvastatin 20 mg PO QHS 05/12/17 09/16/21 05/11/17 History Venlafaxine Xr [Effexor XR] 75 mg PO QDAY 05/12/17 09/16/21 05/11/17 History Metoprolol [Lopressor TAB] 25 mg PO DAILY 03/27/21 09/16/21 Unknown History Review of Systems ROS: Stated complaint: abdominal pain Other details as noted in HPI Comment: All other systems reviewed and negative Constitutional: denies: chills, fever, malaise Respiratory: denies: cough, shortness of breath Cardiovascular: denies: chest pain Gastrointestinal: abdominal pain. denies: nausea, vomiting, diarrhea Musculoskeletal: back pain Medications and Allergies Allergies Allergy/AdvReac Type Severity Reaction Status Date / Time No Known Allergies Allergy Verified 09/16/21 09:08 Home Medications Medication Instructions Recorded Confirmed Last Taken Type Losartan Potassium 25 mg PO QDAY 05/12/17 09/16/21 05/11/17 History Simvastatin 20 mg PO QHS 05/12/17 09/16/21 05/11/17 History Venlafaxine Xr [Effexor XR] 75 mg PO QDAY 05/12/17 09/16/21 05/11/17 History Metoprolol [Lopressor TAB] 25 mg PO DAILY 03/27/21 09/16/21 Unknown History Exam - Constitutional Vitals: Temp Pulse Resp BP Pulse Ox 97.8 F 65 20 135/51 93 09/16/21 12:00 09/16/21 17:01 09/16/21 17:01 09/16/21 17:01 09/16/21 17:01 General appearance: Present: no acute distress, well-nourished - EENT Eyes: Present: PERRL ENT: hearing intact, clear oral mucosa - Neck Neck: Present: supple, normal ROM - Respiratory Respiratory effort: normal Respiratory: bilateral: CTA - Cardiovascular Heart rate: 78 Rhythm: regular Heart Sounds: Present: S1 & S2. Absent: rub, click - Extremities Extremities: pulses symmetrical, No edema Peripheral Pulses: within normal limits - Abdominal General gastrointestinal: Present: soft, non-tender, non-distended, normal bowel sounds Female genitourinary: Present: normal - Integumentary Integumentary: Present: clear, warm, dry - Musculoskeletal Musculoskeletal: gait normal, strength equal bilaterally - Psychiatric Psychiatric: appropriate mood/affect, intact judgment & insight - Neurologic Neurologic: CNII-XII intact, moves all extremities HEART Score - HEART Score EKG: Non-specific Age: > 65 Risk factors: 1-2 risk factors Troponin: Troponin T < 0.010 ng/mL (0.00-0.029) 09/16/21 10:25 Troponin: < normal limit - Critical Actions Critical Actions: 4-6 pts:12-16.6% risk of adverse cardiac event. Should be admitted Results - Labs CBC & Chem 7: 09/17/21 05:32 09/17/21 05:32 Labs: Laboratory Last Values WBC 8.8 K/mm3 (4.5-11.0) 09/16/21 10:25 RBC 4.57 M/mm3 (3.65-5.03) 09/16/21 10:25 Hgb 13.5 gm/dl (10.1-14.3) 09/16/21 10:25 Hct 42.5 % (30.3-42.9) 09/16/21 10:25 MCV 93 fl (79-97) 09/16/21 10:25 MCH 30 pg (28-32) 09/16/21 10:25 MCHC 32 % (30-34) 09/16/21 10:25 RDW 14.1 % (13.2-15.2) 09/16/21 10:25 Plt Count 252 K/mm3 (140-440) 09/16/21 10:25 Add Manual Diff Complete 09/16/21 10:25 Total Counted 100 09/16/21 10:25 Seg Neuts % (Manual) 79.0 % (40.0-70.0) H 09/16/21 10:25 Band Neutrophils % 0 % 09/16/21 10:25 Lymphocytes % (Manual) 12.0 % (13.4-35.0) L 09/16/21 10:25 Reactive Lymphs % (Man) 0 % 09/16/21 10:25 Monocytes % (Manual) 7.0 % (0.0-7.3) 09/16/21 10:25 Eosinophils % (Manual) 2.0 % (0.0-4.3) 09/16/21 10:25 Basophils % (Manual) 0 % (0.0-1.8) 09/16/21 10:25 Metamyelocytes % 0 % 09/16/21 10:25 Myelocytes % 0 % 09/16/21 10:25 Promyelocytes % 0 % 09/16/21 10:25 Blast Cells % 0 % 09/16/21 10:25 Nucleated RBC % Not Reportable 09/16/21 10:25 Seg Neutrophils # Man 7.0 K/mm3 (1.8-7.7) 09/16/21 10:25 Band Neutrophils # 0.0 K/mm3 09/16/21 10:25 Lymphocytes # (Manual) 1.1 K/mm3 (1.2-5.4) L 09/16/21 10:25 Abs React Lymphs (Man) 0.0 K/mm3 09/16/21 10:25 Monocytes # (Manual) 0.6 K/mm3 (0.0-0.8) 09/16/21 10:25 Eosinophils # (Manual) 0.2 K/mm3 (0.0-0.4) 09/16/21 10:25 Basophils # (Manual) 0.0 K/mm3 (0.0-0.1) 09/16/21 10:25 Metamyelocytes # 0.0 K/mm3 09/16/21 10:25 Myelocytes # 0.0 K/mm3 09/16/21 10:25 Promyelocytes # 0.0 K/mm3 09/16/21 10:25 Blast Cells # 0.0 K/mm3 09/16/21 10:25 WBC Morphology Not Reportable 09/16/21 10:25 Hypersegmented Neuts Not Reportable 09/16/21 10:25 Hyposegmented Neuts Not Reportable 09/16/21 10:25 Hypogranular Neuts Not Reportable 09/16/21 10:25 Smudge Cells Not Reportable 09/16/21 10:25 Toxic Granulation Not Reportable 09/16/21 10:25 Toxic Vacuolation Not Reportable 09/16/21 10:25 Dohle Bodies Not Reportable 09/16/21 10:25 Pelger-Huet Anomaly Not Reportable 09/16/21 10:25 Hussain Rods Not Reportable 09/16/21 10:25 Platelet Estimate Consistent w auto 09/16/21 10:25 Clumped Platelets Not Reportable 09/16/21 10:25 Plt Clumps, EDTA Not Reportable 09/16/21 10:25 Large Platelets Not Reportable 09/16/21 10:25 Giant Platelets Not Reportable 09/16/21 10:25 Platelet Satelliting Not Reportable 09/16/21 10:25 Plt Morphology Comment Not Reportable 09/16/21 10:25 RBC Morphology Normal 09/16/21 10:25 Dimorphic RBCs Not Reportable 09/16/21 10:25 Polychromasia Not Reportable 09/16/21 10:25 Hypochromasia Not Reportable 09/16/21 10:25 Poikilocytosis Not Reportable 09/16/21 10:25 Anisocytosis Not Reportable 09/16/21 10:25 Microcytosis Not Reportable 09/16/21 10:25 Macrocytosis Not Reportable 09/16/21 10:25 Spherocytes Not Reportable 09/16/21 10:25 Pappenheimer Bodies Not Reportable 09/16/21 10:25 Sickle Cells Not Reportable 09/16/21 10:25 Target Cells Not Reportable 09/16/21 10:25 Tear Drop Cells Not Reportable 09/16/21 10:25 Ovalocytes Not Reportable 09/16/21 10:25 Helmet Cells Not Reportable 09/16/21 10:25 Cee-[place] Bodies Not Reportable 09/16/21 10:25 [place] Rings Not Reportable 09/16/21 10:25 Aubrey Cells Not Reportable 09/16/21 10:25 Bite Cells Not Reportable 09/16/21 10:25 Crenated Cell Not Reportable 09/16/21 10:25 Elliptocytes Not Reportable 09/16/21 10:25 Acanthocytes (Spur) Not Reportable 09/16/21 10:25 Rouleaux Not Reportable 09/16/21 10:25 Hemoglobin C Crystals Not Reportable 09/16/21 10:25 Schistocytes Not Reportable 09/16/21 10:25 Malaria parasites Not Reportable 09/16/21 10:25 Hakan Bodies Not Reportable 09/16/21 10:25 Hem Pathologist Commnt No 09/16/21 10:25 Sodium 143 mmol/L (137-145) 09/16/21 10:25 Potassium 3.9 mmol/L (3.6-5.0) 09/16/21 10:25 Chloride 105.0 mmol/L (98-107) 09/16/21 10:25 Carbon Dioxide 27 mmol/L (22-30) 09/16/21 10:25 Anion Gap 15 mmol/L 09/16/21 10:25 BUN 11 mg/dL (7-17) 09/16/21 10:25 Creatinine 0.6 mg/dL (0.6-1.2) 09/16/21 10:25 Estimated GFR > 60 ml/min 09/16/21 10:25 BUN/Creatinine Ratio 18 % 09/16/21 10:25 Glucose 117 mg/dL (65-100) H 09/16/21 10:25 Calcium 9.8 mg/dL (8.4-10.2) 09/16/21 10:25 Troponin T < 0.010 ng/mL (0.00-0.029) 09/16/21 10:25 Lipase 103 units/L (13-60) H 09/16/21 10:25 Urine Color Yellow (Yellow) 09/16/21 Unknown Urine Turbidity Cloudy (Clear) 09/16/21 Unknown Urine pH 6.0 (5.0-7.0) 09/16/21 Unknown Ur Specific [place] 1.015 (1.003-1.030) 09/16/21 Unknown Urine Protein 100 mg/dl mg/dL (Negative) 09/16/21 Unknown Urine Glucose (UA) Neg mg/dL (Negative) 09/16/21 Unknown Urine Ketones Neg mg/dL (Negative) 09/16/21 Unknown Urine Blood Lg (Negative) 09/16/21 Unknown Urine Nitrite Neg (Negative) 09/16/21 Unknown Urine Bilirubin Neg (Negative) 09/16/21 Unknown Urine Urobilinogen < 2.0 mg/dL (<2.0) 09/16/21 Unknown Ur Leukocyte Esterase Neg (Negative) 09/16/21 Unknown Urine WBC (Auto) 47.0 /HPF (0.0-6.0) H 09/16/21 Unknown Urine RBC (Auto) > 182.0 /HPF (0.0-6.0) 09/16/21 Unknown U Epithel Cells (Auto) 9.0 /HPF (0-13.0) 09/16/21 Unknown Urine Bacteria (Auto) 1+ /HPF (Negative) 09/16/21 Unknown Urine Mucus 2+ /HPF 09/16/21 Unknown - Imaging and Cardiology EKG: report reviewed (Normal sinus rhythm no acute ST-T wave changes) Assessment and Plan Advance Directives: Yes (Full code) VTE prophylaxis?: Chemical Plan of care discussed with patient/family: Yes - Patient Problems (1) Acute coronary syndrome Current Visit: Yes Status: Acute Plan to address problem: Chest pain rule out [place] work-up Lexiscan in the morning Serial troponins (2) Renal colic on left side Current Visit: Yes Status: Acute Plan to address problem: IV fluids for now (3) Hyperlipidemia Current Visit: Yes Status: Chronic Qualifiers: Hyperlipidemia type: mixed hyperlipidemia Qualified Code(s): E78.2 - Mixed hyperlipidemia Plan to address problem: Continue antihypertensives (4) Generalized anxiety disorder Current Visit: Yes Status: Chronic Plan to address problem: Ativan as needed (5) DVT prophylaxis Current Visit: Yes Status: Acute Plan to address problem: On anticoagulation and GI prophylaxis (6) Advance care planning Current Visit: Yes Status: Acute Plan to address problem: Disease education conducted, care plan discussed, diagnosis discussed, prognosis discussed. Patient is full code. Patient acknowledges understanding and agreement with care plan. +30 minutes.
[2021-09-16] MEDS ORDERED: ACETAMINOPHEN 325 MG TAB PO PRN (20:48)
[2021-09-16] MEDS ORDERED: METOCLOPRAMIDE 10 MG/2 ML INJ IV PRN (20:48)
[2021-09-16] MEDS ORDERED: MORPHINE 2 MG/1 ML INJ IV PRN (20:48)
[2021-09-16] MEDS ORDERED: ONDANSETRON 4 MG/2 ML INJ IV PRN (20:48)
[2021-09-16] MEDS ORDERED: HYDROmorphone 1 MG/1 ML INJ IV PRN (20:48)
[2021-09-16] MEDS ORDERED: SODIUM CHLORIDE 0.9% 1000 ML 1,000 ML IV SCH (21:00)
[2021-09-16] MEDS: LOSARTAN 25 MG TAB PO SCH (22:00)
[2021-09-16] MEDS ORDERED: NON-FORMULARY EACH (Simvastatin [Simvastatin] 20 MG Tablet) PO SCH (22:00)
[2021-09-16] MEDS ORDERED: PRAVASTATIN 40 MG TAB PO SCH (22:00)
[2021-09-16] MEDS: METOPROLOL TARTRATE 25 MG TAB PO SCH (22:27)
[2021-09-16] MEDS: VENLAFAXINE XR 75 MG CAP PO SCH (22:29)
[2021-09-16] MEDS: HEPARIN 5,000 UNIT/1 ML VIAL SUB-Q SCH (22:30)
[2021-09-17 06:06] LABS: Basophils % (Auto) 0.3 % (0.0-1.8); Eosinophils # (Auto) 0.2 K/mm3 (0.0-0.4); Eosinophils % (Auto) 3.2 % (0.0-4.3); Hematocrit 40.5 % (30.3-42.9); Hemoglobin 13.1 gm/dl (10.1-14.3); Lymphocytes # (Auto) 1.2 K/mm3 (1.2-5.4); Lymphocytes % (Auto) 23.6 % (13.4-35.0); Mean Corpuscular HGB Conc 32 % (30-34); Mean Corpuscular Volume 93 fl (79-97); Monocytes # (Auto) 0.4 K/mm3 (0.0-0.8); Monocytes % (Auto) 6.7 % (0.0-7.3); Platelet Count 207 K/mm3 (140-440); Red Blood Count 4.38 M/mm3 (3.65-5.03); Red Cell Distribution Width 14.3 % (13.2-15.2)
[2021-09-17 06:25] LABS: Alanine Aminotransferase 40 units/L (7-56); Albumin 3.8 g/dL (3.9-5); BUN/Creatinine Ratio 13; Blood Urea Nitrogen 8 mg/dL (7-17); Calcium 9.2 mg/dL (8.4-10.2); Hemolysis Index 12
[2021-09-17] MEDS: VENLAFAXINE XR 75 MG CAP PO SCH (09:09)
[2021-09-17] MEDS: METOPROLOL TARTRATE 25 MG TAB PO SCH (09:09)
[2021-09-17] MEDS: HEPARIN 5,000 UNIT/1 ML VIAL SUB-Q SCH (09:09)
[2021-09-17] MEDS: LOSARTAN 25 MG TAB PO SCH (09:09)
--- NOTE | 2021-09-17 09:50 | Progress Note ---
Assessment and Plan Assessment and plan: Advance Directives: Yes (Full code) VTE prophylaxis?: Chemical Plan of care discussed with patient/family: Yes - Patient Problems (1) Acute coronary syndrome Current Visit: Yes Status: Acute Plan to address problem: Chest pain rule out [place] work-up Lexiscan in the morning Serial troponins (2) Renal colic on left side Current Visit: Yes Status: Acute Plan to address problem: IV fluids for now (3) Hyperlipidemia Current Visit: Yes Status: Chronic Qualifiers: Hyperlipidemia type: mixed hyperlipidemia Qualified Code(s): E78.2 - Mixed hyperlipidemia Plan to address problem: Continue antihypertensives (4) Generalized anxiety disorder Current Visit: Yes Status: Chronic Plan to address problem: Ativan as needed (5) DVT prophylaxis Current Visit: Yes Status: Acute Plan to address problem: On anticoagulation and GI prophylaxis (6) Advance care planning Current Visit: Yes Status: Acute Plan to address problem: Disease education conducted, care plan discussed, diagnosis discussed, prognosis discussed. Patient is full code. Patient acknowledges understanding and agreement with care plan. +30 minutes. Hospitalist Physical - Constitutional Vitals: Temp Pulse Resp BP Pulse Ox 97.8 F 69 14 173/63 96 09/17/21 08:08 09/17/21 08:08 09/17/21 08:08 09/17/21 08:08 09/17/21 08:08 General appearance: Present: no acute distress, well-nourished HEART Score - HEART Score EKG: Non-specific Age: > 65 Risk factors: 1-2 risk factors Troponin: Troponin T < 0.010 ng/mL (0.00-0.029) 09/17/21 05:32 Troponin: < normal limit - Critical Actions Critical Actions: 4-6 pts:12-16.6% risk of adverse cardiac event. Should be admitted Results - Labs CBC & Chem 7: 09/17/21 05:32 09/17/21 05:32 Labs: Laboratory Last Values WBC 5.3 K/mm3 (4.5-11.0) 09/17/21 05:32 RBC 4.38 M/mm3 (3.65-5.03) 09/17/21 05:32 Hgb 13.1 gm/dl (10.1-14.3) 09/17/21 05:32 Hct 40.5 % (30.3-42.9) 09/17/21 05:32 MCV 93 fl (79-97) 09/17/21 05:32 MCH 30 pg (28-32) 09/17/21 05:32 MCHC 32 % (30-34) 09/17/21 05:32 RDW 14.3 % (13.2-15.2) 09/17/21 05:32 Plt Count 207 K/mm3 (140-440) 09/17/21 05:32 Lymph % (Auto) 23.6 % (13.4-35.0) 09/17/21 05:32 [place] % (Auto) 6.7 % (0.0-7.3) 09/17/21 05:32 Eos % (Auto) 3.2 % (0.0-4.3) 09/17/21 05:32 Baso % (Auto) 0.3 % (0.0-1.8) 09/17/21 05:32 Lymph # (Auto) 1.2 K/mm3 (1.2-5.4) 09/17/21 05:32 [place] # (Auto) 0.4 K/mm3 (0.0-0.8) 09/17/21 05:32 Eos # (Auto) 0.2 K/mm3 (0.0-0.4) 09/17/21 05:32 Baso # (Auto) 0.0 K/mm3 (0.0-0.1) 09/17/21 05:32 Add Manual Diff Complete 09/16/21 10:25 Total Counted 100 09/16/21 10:25 Seg Neutrophils % 66.2 % (40.0-70.0) 09/17/21 05:32 Seg Neuts % (Manual) 79.0 % (40.0-70.0) H 09/16/21 10:25 Band Neutrophils % 0 % 09/16/21 10:25 Lymphocytes % (Manual) 12.0 % (13.4-35.0) L 09/16/21 10:25 Reactive Lymphs % (Man) 0 % 09/16/21 10:25 Monocytes % (Manual) 7.0 % (0.0-7.3) 09/16/21 10:25 Eosinophils % (Manual) 2.0 % (0.0-4.3) 09/16/21 10:25 Basophils % (Manual) 0 % (0.0-1.8) 09/16/21 10:25 Metamyelocytes % 0 % 09/16/21 10:25 Myelocytes % 0 % 09/16/21 10:25 Promyelocytes % 0 % 09/16/21 10:25 Blast Cells % 0 % 09/16/21 10:25 Nucleated RBC % Not Reportable 09/16/21 10:25 Seg Neutrophils # 3.5 K/mm3 (1.8-7.7) 09/17/21 05:32 Seg Neutrophils # Man 7.0 K/mm3 (1.8-7.7) 09/16/21 10:25 Band Neutrophils # 0.0 K/mm3 09/16/21 10:25 Lymphocytes # (Manual) 1.1 K/mm3 (1.2-5.4) L 09/16/21 10:25 Abs React Lymphs (Man) 0.0 K/mm3 09/16/21 10:25 Monocytes # (Manual) 0.6 K/mm3 (0.0-0.8) 09/16/21 10:25 Eosinophils # (Manual) 0.2 K/mm3 (0.0-0.4) 09/16/21 10:25 Basophils # (Manual) 0.0 K/mm3 (0.0-0.1) 09/16/21 10:25 Metamyelocytes # 0.0 K/mm3 09/16/21 10:25 Myelocytes # 0.0 K/mm3 09/16/21 10:25 Promyelocytes # 0.0 K/mm3 09/16/21 10:25 Blast Cells # 0.0 K/mm3 09/16/21 10:25 WBC Morphology Not Reportable 09/16/21 10:25 Hypersegmented Neuts Not Reportable 09/16/21 10:25 Hyposegmented Neuts Not Reportable 09/16/21 10:25 Hypogranular Neuts Not Reportable 09/16/21 10:25 Smudge Cells Not Reportable 09/16/21 10:25 Toxic Granulation Not Reportable 09/16/21 10:25 Toxic Vacuolation Not Reportable 09/16/21 10:25 Dohle Bodies Not Reportable 09/16/21 10:25 Pelger-Huet Anomaly Not Reportable 09/16/21 10:25 Hussain Rods Not Reportable 09/16/21 10:25 Platelet Estimate Consistent w auto 09/16/21 10:25 Clumped Platelets Not Reportable 09/16/21 10:25 Plt Clumps, EDTA Not Reportable 09/16/21 10:25 Large Platelets Not Reportable 09/16/21 10:25 Giant Platelets Not Reportable 09/16/21 10:25 Platelet Satelliting Not Reportable 09/16/21 10:25 Plt Morphology Comment Not Reportable 09/16/21 10:25 RBC Morphology Normal 09/16/21 10:25 Dimorphic RBCs Not Reportable 09/16/21 10:25 Polychromasia Not Reportable 09/16/21 10:25 Hypochromasia Not Reportable 09/16/21 10:25 Poikilocytosis Not Reportable 09/16/21 10:25 Anisocytosis Not Reportable 09/16/21 10:25 Microcytosis Not Reportable 09/16/21 10:25 Macrocytosis Not Reportable 09/16/21 10:25 Spherocytes Not Reportable 09/16/21 10:25 Pappenheimer Bodies Not Reportable 09/16/21 10:25 Sickle Cells Not Reportable 09/16/21 10:25 Target Cells Not Reportable 09/16/21 10:25 Tear Drop Cells Not Reportable 09/16/21 10:25 Ovalocytes Not Reportable 09/16/21 10:25 Helmet Cells Not Reportable 09/16/21 10:25 Cee-[place] Bodies Not Reportable 09/16/21 10:25 [place] Rings Not Reportable 09/16/21 10:25 Aubrey Cells Not Reportable 09/16/21 10:25 Bite Cells Not Reportable 09/16/21 10:25 Crenated Cell Not Reportable 09/16/21 10:25 Elliptocytes Not Reportable 09/16/21 10:25 Acanthocytes (Spur) Not Reportable 09/16/21 10:25 Rouleaux Not Reportable 09/16/21 10:25 Hemoglobin C Crystals Not Reportable 09/16/21 10:25 Schistocytes Not Reportable 09/16/21 10:25 Malaria parasites Not Reportable 09/16/21 10:25 Hakan Bodies Not Reportable 09/16/21 10:25 Hem Pathologist Commnt No 09/16/21 10:25 Sodium 144 mmol/L (137-145) 09/17/21 05:32 Potassium 4.1 mmol/L (3.6-5.0) 09/17/21 05:32 Chloride 108.5 mmol/L (98-107) H 09/17/21 05:32 Carbon Dioxide 26 mmol/L (22-30) 09/17/21 05:32 Anion Gap 14 mmol/L 09/17/21 05:32 BUN 8 mg/dL (7-17) 09/17/21 05:32 Creatinine 0.6 mg/dL (0.6-1.2) 09/17/21 05:32 Estimated GFR > 60 ml/min 09/17/21 05:32 BUN/Creatinine Ratio 13 % 09/17/21 05:32 Glucose 91 mg/dL (65-100) 09/17/21 05:32 Calcium 9.2 mg/dL (8.4-10.2) 09/17/21 05:32 Total Bilirubin 0.60 mg/dL (0.1-1.2) 09/17/21 05:32 AST 49 units/L (5-40) H 09/17/21 05:32 ALT 40 units/L (7-56) 09/17/21 05:32 Alkaline Phosphatase 123 units/L (35-129) 09/17/21 05:32 Troponin T < 0.010 ng/mL (0.00-0.029) 09/17/21 05:32 Total Protein 6.3 g/dL (6.3-8.2) 09/17/21 05:32 Albumin 3.8 g/dL (3.9-5) L 09/17/21 05:32 Albumin/Globulin Ratio 1.5 % 09/17/21 05:32 Lipase 103 units/L (13-60) H 09/16/21 10:25 Urine Color Yellow (Yellow) 09/16/21 Unknown Urine Turbidity Cloudy (Clear) 09/16/21 Unknown Urine pH 6.0 (5.0-7.0) 09/16/21 Unknown Ur Specific [place] 1.015 (1.003-1.030) 09/16/21 Unknown Urine Protein 100 mg/dl mg/dL (Negative) 09/16/21 Unknown Urine Glucose (UA) Neg mg/dL (Negative) 09/16/21 Unknown Urine Ketones Neg mg/dL (Negative) 09/16/21 Unknown Urine Blood Lg (Negative) 09/16/21 Unknown Urine Nitrite Neg (Negative) 09/16/21 Unknown Urine Bilirubin Neg (Negative) 09/16/21 Unknown Urine Urobilinogen < 2.0 mg/dL (<2.0) 09/16/21 Unknown Ur Leukocyte Esterase Neg (Negative) 09/16/21 Unknown Urine WBC (Auto) 47.0 /HPF (0.0-6.0) H 09/16/21 Unknown Urine RBC (Auto) > 182.0 /HPF (0.0-6.0) 09/16/21 Unknown U Epithel Cells (Auto) 9.0 /HPF (0-13.0) 09/16/21 Unknown Urine Bacteria (Auto) 1+ /HPF (Negative) 09/16/21 Unknown Urine Mucus 2+ /HPF 09/16/21 Unknown Rodríguez/IV: Voiding Method Toilet Active Medications - Current Medications Current Medications: Generic Name Dose Route Start Last Admin Trade Name Freq PRN Reason Stop Dose Admin Acetaminophen 650 mg 09/16/21 20:48 Acetaminophen 325 Mg Tab PO Q4H PRN Pain MILD(1-3)/Fever >100.5/COOPER Heparin Sodium (Porcine) 5,000 unit 09/16/21 22:00 09/17/21 09:09 Heparin 5,000 Unit/1 Ml Vial SUB-Q 5,000 unit Q12HR KUSH Administration Hydromorphone HCl 0.5 mg 09/16/21 20:48 Hydromorphone 1 Mg/1 Ml Inj IV Q3H PRN Pain , Severe (7-10) Sodium Chloride 1,000 mls @ 100 mls/hr 09/16/21 21:00 09/17/21 04:30 Nacl 0.9% 1000 Ml IV 100 mls/hr DIRECT KUSH Administration Losartan Potassium 25 mg 09/16/21 21:00 09/17/21 09:09 Losartan 25 Mg Tab PO 25 mg QDAY KUSH Administration Metoclopramide HCl 10 mg 09/16/21 20:48 Metoclopramide 10 Mg/2 Ml Inj IV Q6H PRN Nausea And Vomiting Metoprolol Tartrate 25 mg 09/16/21 21:00 09/17/21 09:09 Metoprolol Tartrate 25 Mg Tab PO 25 mg DAILY KUSH Administration Morphine Sulfate 2 mg 09/16/21 20:48 Morphine 2 Mg/1 Ml Inj IV Q4H PRN Pain, Moderate (4-6) Ondansetron HCl 4 mg 09/16/21 20:48 Ondansetron 4 Mg/2 Ml Inj IV Q3H PRN Nausea And Vomiting Pravastatin Sodium 40 mg 09/16/21 22:00 09/16/21 22:30 Pravastatin 40 Mg Tab PO 40 mg QHS KUSH Administration Sodium Chloride 10 ml 09/16/21 22:00 09/17/21 09:18 Sodium Chloride 0.9% 10 Ml Flush Syringe IV 10 ml BID KUSH Administration Sodium Chloride 10 ml 09/16/21 20:48 Sodium Chloride 0.9% 10 Ml Flush Syringe IV PRN PRN LINE FLUSH Venlafaxine HCl 75 mg 09/16/21 21:00 09/17/21 09:09 Venlafaxine Xr 75 Mg Cap PO 75 mg QDAY KUSH Administration
--- NOTE | 2021-09-17 13:18 | Consultation ---
History of Present Illness Consult date: 09/17/21 Consult reason: chest pain History of present illness: The patient is a 80-year-old woman who presented to the emergency room with left flank pain. A CT of the abdomen reported bilateral nephrolithiasis. During her course in the emergency room, after she was given pain medications including morphine, she then reported some epigastric discomfort which prompted additional cardiac work-up, culminating in a request for cardiac consultation. Patient states however that the epigastric discomfort was transient, most of her symptom s remain her left flank pain and CVA tenderness. She is very active, has no exertional chest pain, no shortness of breath. She has no prior cardiac history. Work-up so far ECG was normal sinus rhythm with nonspecific ST and T wave changes, no acute ischemia or infarction. Laboratory exam shows normal troponin levels x3. Past History Past Medical History: hypertension Medications and Allergies Allergies Allergy/AdvReac Type Severity Reaction Status Date / Time No Known Allergies Allergy Verified 09/17/21 11:40 Home Medications Medication Instructions Recorded Confirmed Last Taken Type Losartan Potassium 25 mg PO QDAY 05/12/17 09/17/21 05/11/17 History Simvastatin 20 mg PO QHS 05/12/17 09/17/21 05/11/17 History Venlafaxine Xr [Effexor XR] 75 mg PO QDAY 05/12/17 09/17/21 05/11/17 History Metoprolol [Lopressor TAB] 25 mg PO DAILY 03/27/21 09/17/21 Unknown History Cholecalciferol Vit D3 [Vitamin D3 1,000 unit PO QDAY 09/17/21 09/17/21 Unknown History 1,000 UNIT TAB] Ferrous Sulfate [Iron 325 MG] 325 mg PO QDAY 09/17/21 09/17/21 Unknown History Active Meds: Active Medications Acetaminophen (Acetaminophen 325 Mg Tab) 650 mg PO Q4H PRN PRN Reason: Pain MILD(1-3)/Fever >100.5/COOPER Heparin Sodium (Porcine) (Heparin 5,000 Unit/1 Ml Vial) 5,000 unit SUB-Q Q12HR KUSH Last Admin: 09/17/21 09:09 Dose: 5,000 unit Hydromorphone HCl (Hydromorphone 1 Mg/1 Ml Inj) 0.5 mg IV Q3H PRN PRN Reason: Pain , Severe (7-10) Sodium Chloride (Nacl 0.9% 1000 Ml) 1,000 mls @ 100 mls/hr IV DIRECT [facility] Last Admin: 09/17/21 04:30 Dose: 100 mls/hr Losartan Potassium (Losartan 25 Mg Tab) 25 mg PO QDAY [facility] Last Admin: 09/17/21 09:09 Dose: 25 mg Metoclopramide HCl (Metoclopramide 10 Mg/2 Ml Inj) 10 mg IV Q6H PRN PRN Reason: Nausea And Vomiting Metoprolol Tartrate (Metoprolol Tartrate 25 Mg Tab) 25 mg PO DAILY [facility] Last Admin: 09/17/21 09:09 Dose: 25 mg Morphine Sulfate (Morphine 2 Mg/1 Ml Inj) 2 mg IV Q4H PRN PRN Reason: Pain, Moderate (4-6) Ondansetron HCl (Ondansetron 4 Mg/2 Ml Inj) 4 mg IV Q3H PRN PRN Reason: Nausea And Vomiting Pravastatin Sodium (Pravastatin 40 Mg Tab) 40 mg PO QHS [facility] Last Admin: 09/16/21 22:30 Dose: 40 mg Sodium Chloride (Sodium Chloride 0.9% 10 Ml Flush Syringe) 10 ml IV BID [facility] Last Admin: 09/17/21 09:18 Dose: 10 ml Sodium Chloride (Sodium Chloride 0.9% 10 Ml Flush Syringe) 10 ml IV PRN PRN PRN Reason: LINE FLUSH Venlafaxine HCl (Venlafaxine Xr 75 Mg Cap) 75 mg PO QDAY [facility] Last Admin: 09/17/21 09:09 Dose: 75 mg Review of Systems Cardiovascular: chest pain, no orthopnea, no palpitations, no rapid/irregular heart beat, no edema, no syncope, no lightheadedness, no shortness of breath Physical Examination Vital Signs Pulse Resp BP Pulse Ox 60 16 186/70 98 09/16/21 09:04 09/16/21 09:04 09/16/21 09:04 09/16/21 09:04 General appearance: no acute distress HEENT: Positive: PERRL Neck: Positive: neck supple Cardiac: Positive: Reg Rate and Rhythm Lungs: Positive: clear to auscultation Neuro: Positive: Grossly Intact Abdomen: Positive: Soft Female genitourinary: deferred Skin: Positive: Clear Extremities: Absent: edema Results 09/17/21 05:32 09/17/21 05:32 Cardiac Enzymes 09/17/21 Range/Units 05:32 AST 49 H (5-40) units/L CBC 09/17/21 Range/Units 05:32 WBC 5.3 (4.5-11.0) K/mm3 RBC 4.38 (3.65-5.03) M/mm3 Hgb 13.1 (10.1-14.3) gm/dl Hct 40.5 (30.3-42.9) % Plt Count 207 (140-440) K/mm3 Lymph # (Auto) 1.2 (1.2-5.4) K/mm3 Arthur # (Auto) 0.4 (0.0-0.8) K/mm3 Eos # (Auto) 0.2 (0.0-0.4) K/mm3 Baso # (Auto) 0.0 (0.0-0.1) K/mm3 Comprehensive Metabolic Panel 09/17/21 Range/Units 05:32 Sodium 144 (137-145) mmol/L Potassium 4.1 (3.6-5.0) mmol/L Chloride 108.5 H (98-107) mmol/L Carbon Dioxide 26 (22-30) mmol/L BUN 8 (7-17) mg/dL Creatinine 0.6 (0.6-1.2) mg/dL Glucose 91 (65-100) mg/dL Calcium 9.2 (8.4-10.2) mg/dL AST 49 H (5-40) units/L ALT 40 (7-56) units/L Alkaline Phosphatase 123 (35-129) units/L Total Protein 6.3 (6.3-8.2) g/dL Albumin 3.8 L (3.9-5) g/dL EKG interpretations - Telemetry EKG Rhythm: Sinus Rhythm Assessment and Plan - Patient Problems (1) Atypical chest pain Current Visit: Yes Status: Acute Plan to address problem: Patient presented to the hospital with left flank pain and nephrolithiasis. Epigastric discomfort following administration of narcotic agents, appears atypical for angina pectoris. We will recommend continued work-up and management of the patient's presenting nephrolithiasis. Conservative management and follow-up from cardiac standpoint.
--- NOTE | 2021-09-17 15:13 | Discharge Summary ---
Providers - Providers Date of Admission: 09/16/21 20:48 Date of discharge: 09/17/21 Attending physician: MICHAEL CARRINGTON 09/16/21 20:54 Consult to Physician [CONS] Routine Comment: Consulting Provider: AMBROSIO LEARY Physician Instructions: Reason For Exam: Acute coronary syndrome Primary care physician: LOAN FUNDER Hospitalization Reason for admission: Left renal colic/nephrolithiasis Condition: Stable Pertinent studies: CT abdomen and pelvis mildly obstructing left nephrolithiasis nonobstructing right nephrolithiasis with moderate diverticulosis lumbar spondylosis Hospital course: Assessment and plan: Advance Directives: Yes (Full code) VTE prophylaxis?: Chemical Plan of care discussed with patient/family: Yes - Patient Problems (1) Acute coronary syndrome Current Visit: Yes Status: Acute Plan to address problem: Chest pain rule out MD work-up Lexiscan in the morning Serial troponins (2) Renal colic on left side Current Visit: Yes Status: Acute Plan to address problem: IV fluids for now (3) Hyperlipidemia Current Visit: Yes Status: Chronic Qualifiers: Hyperlipidemia type: mixed hyperlipidemia Qualified Code(s): E78.2 - Mixed hyperlipidemia Plan to address problem: Continue antihypertensives (4) Generalized anxiety disorder Current Visit: Yes Status: Chronic Plan to address problem: Ativan as needed (5) DVT prophylaxis Current Visit: Yes Status: Acute Plan to address problem: On anticoagulation and GI prophylaxis (6) Advance care planning Current Visit: Yes Status: Acute Plan to address problem: Disease education conducted, care plan discussed, diagnosis discussed, prognosis discussed. Patient is full code. Patient acknowledges understanding and agreement with care plan. +30 minutes. Final Discharge Diagnosis (Prints w/discharge instructions): Acute coronary syndrome. Left renal colic improved. Left renal calculus. Dyslipidemia. Generalized anxiety disorder Time spent for discharge: 45 minutes Core Measure Documentation - Palliative Care Palliative Care/ Comfort Measures: Not Applicable - Core Measures Any of the following diagnoses?: none Exam - Constitutional Vitals: Temp Pulse Resp BP Pulse Ox 97.8 F 61 18 173/63 98 09/17/21 08:08 09/17/21 10:37 09/17/21 10:37 09/17/21 08:08 09/17/21 10:37 General appearance: Present: no acute distress, well-nourished - EENT Eyes: Present: PERRL, EOM intact - Neck Neck: Present: supple, normal ROM - Respiratory Respiratory effort: normal Respiratory: bilateral: diminished, negative: rales, rhonchi, wheezing - Cardiovascular Rhythm: regular Heart Sounds: Present: S1 & S2 - Extremities Extremities: no ischemia, No edema - Abdominal General gastrointestinal: Present: soft, non-tender, non-distended, normal bowel sounds - Integumentary Integumentary: Present: clear, warm - Musculoskeletal Musculoskeletal: strength equal bilaterally, generalized weakness - Psychiatric Psychiatric: appropriate mood/affect, cooperative Plan Activity: advance as tolerated, fall precautions Diet: other (Cardiac diet as tolerated) Additional Instructions: If you have worsening symptoms contact MD or go to the nearest emergency room as needed. Advised to see your private urologist or Dr. Brizuela per schedule. Plenty of oral fluids, follow primary care physician in 1 week advised to comply with medications diet. , And follow-up visits Follow up with: PRIMARY CAREMD [Primary Care Provider] - 7 Days AXEL BRIZUELA MD [Staff Physician] - 7 Days AMBROSIO LEARY MD [Staff Physician] - 14 Days Prescriptions: Dicyclomine [Bentyl] 10 mg PO TID #20 cap oxyCODONE /ACETAMINOPHEN [Percocet 5/325] 1 tab PO BID #8
[2021-09-17 16:30] VITALS: BP 160/64
== END 2021-09-17 17:15 | disposition home or self-care (01) ==
LOC: ED 09:03 → 4A 20:48 → INTOOBSV 20:48 → 4A 23:28
PROVIDERS: ADMIT Internal Medicine; ATTEND Internal Medicine
DX: I24.9 Acute ischemic heart disease, unspecified (principal); R07.89 Other chest pain; R10.32 Left lower quadrant pain; E78.2 Mixed hyperlipidemia; F41.1 Generalized anxiety disorder; I10 Essential (primary) hypertension; E78.00 Pure hypercholesterolemia, unspecified; Z87.442 Personal history of urinary calculi; Z90.49 Acquired absence of other specified parts of digestive tract; Z79.899 Other long term (current) drug therapy; Z98.890 Other specified postprocedural states
CPT/HCPCS: 36415; 74176; 80048; 80053; 81001; 83690; 84484; 85025; 87086; 93005; 96361; 96372; 96374; 96375; 99285; C9113; G0378; J1644; J2270; J2405; J7030; 85007; Q0162

== ENCOUNTER 2021-09-28 06:29 | Emergency (ER) | payer MEDICARE, OTHER ==
--- NOTE | 2021-09-28 07:52 | Event Note ---
ED Screening Note Time: 07:51 ED Screening Note: 09-16 here with k stone- partially obstructing she was inpt and then dc home the next day returns with worsening pain today moaning in triage This initial assessment/diagnostic orders/clinical plan/treatment(s) is/are subject to change based on patients health status, clinical progression and re- assessment by fellow clinical providers in the ED. Further treatment and workup at subsequent clinical providers discretion. Patient/guardian urged not to elope from the ED as their condition may be serious if not clinically assessed and managed. Initial orders include: ro urosepsis / infected stone/ worsening hydro
[2021-09-28 08:04] LABS: Basophils % (Auto) 0.3 % (0.0-1.8); Eosinophils # (Auto) 0.2 K/mm3 (0.0-0.4); Hematocrit 43.2 % (30.3-42.9); Hemoglobin 14.5 gm/dl (10.1-14.3); Lymphocytes # (Auto) 1.1 K/mm3 (1.2-5.4); Lymphocytes % (Auto) 10.7 % (13.4-35.0); Mean Corpuscular HGB Conc 34 % (30-34); Mean Corpuscular Volume 92 fl (79-97); Monocytes # (Auto) 0.6 K/mm3 (0.0-0.8); Monocytes % (Auto) 5.8 % (0.0-7.3); Platelet Count 243 K/mm3 (140-440); Red Blood Count 4.71 M/mm3 (3.65-5.03); Red Cell Distribution Width 14.1 % (13.2-15.2)
[2021-09-28 08:07] LABS: Bacteria,Urine 1+ /HPF (Negative); Bilirubin,Urine NEG (Negative); Blood,Urine LG (Negative); Color,Urine Red (Yellow); Mucus,Urine 2+ /HPF; Urobilinogen,Urine < 2.0 mg/dL (<2.0)
[2021-09-28 08:15] LABS: RBC,Urine > 182.0 /HPF (0.0-6.0)
[2021-09-28 08:25] LABS: Blood Urea Nitrogen 9 mg/dL (7-17); Calcium 9.4 mg/dL (8.4-10.2); Hemolysis Index 12
--- NOTE | 2021-09-28 08:38 | Cat Scan Report ---
CT abdomen pelvis wo con INDICATION: abd pain left side flank pain times 1 day. COMPARISON: September 16, 2021 TECHNIQUE: Abdominal and pelvic CT exam performed. All CT scans at this location are performed using CT dose reduction for ALARA by means of automated exposure control. FINDINGS: CT ABDOMEN and PELVIS: Lung Bases: Scarring or subsegmental atelectasis in lung bases, unchanged. Liver: No significant abnormality. Biliary: Gallbladder is surgically absent. Spleen: No significant abnormality. Pancreas: No significant abnormality. Adrenals: No significant abnormality. Kidneys: Suspect 2 stones terminating in the distal left ureter as seen on image 52 and 53 of series 601 measuring 2 and 4 mm. Moderate left hydroureteronephrosis it is mildly worse. Increased periurete ral stranding. Lymphatics: No lymphadenopathy. Vasculature: No significant abnormality. Bowel: Diverticulosis without colonic wall thickening or pericolonic stranding. Normal appendix. Pelvis: No significant abnormality. Osseous Structures: No aggressive osseous lesion. Unchanged levoscoliosis and spondylosis. Additional Findings: None IMPRESSION: 1. The previously seen intraureteral stones have migrated distally, and there are now 2 stones seen i n the distal ureter. Social moderate hydroureteronephrosis which is mildly worse than prior exam. Signer Name: Antony Crouch MD Signed: 09/28/2021 8:33 AM Workstation Name: [email or web address]
[2021-09-28 08:45] LABS: BUN/Creatinine Ratio 13
[2021-09-28] MEDS: ONDANSETRON 4 MG/2 ML INJ IV ONE (09:14)
[2021-09-28] MEDS: KETOROLAC 30 MG/1 ML INJ IV ONE (09:19)
[2021-09-28] MEDS: SODIUM CHLORIDE 0.9% 1000 ML 1,000 ML IV ONE (09:20)
[2021-09-28] MEDS: cefTRIAXone/NS 1 GM/50 ML 1 GM/50 ML BAG IV ONE (09:31)
--- NOTE | 2021-09-28 12:39 | Emergency Department Report ---
ED Abdominal Pain HPI - General Chief Complaint: Abdominal Pain Stated Complaint: KIDNEY STONES/FLANK PAIN Time Seen by Provider: 09/28/21 07:29 Source: patient Mode of arrival: Ambulatory Limitations: No Limitations - History of Present Illness Initial Comments: pt reports being seen recently for kidney stones, pain is worse overnight, reports nausea/vomiting pt was here in the hospital on and was discovered to have left kidney stones, was referred to urology but she didn;t follow up, pain got worse last night no fever no chills MD Complaint: abdominal pain, flank pain -: Sudden, hour(s) Location: L flank Migration to: no migration Severity scale (0 -10): 7 Quality: aching Consistency: constant Improves With: nothing Worsens With: nothing - Related Data Home Medications Medication Instructions Recorded Confirmed Last Taken Losartan Potassium 25 mg PO QDAY 05/12/17 09/17/21 05/11/17 Simvastatin 20 mg PO QHS 05/12/17 09/17/21 05/11/17 Venlafaxine Xr [Effexor XR] 75 mg PO QDAY 05/12/17 09/17/21 05/11/17 Metoprolol [Lopressor TAB] 25 mg PO DAILY 03/27/21 09/17/21 Unknown Cholecalciferol Vit D3 [Vitamin D3 1,000 unit PO QDAY 09/17/21 09/17/21 Unknown 1,000 UNIT TAB] Ferrous Sulfate [Iron 325 MG] 325 mg PO QDAY 09/17/21 09/17/21 Unknown Previous Rx's Medication Instructions Recorded Last Taken Type Dicyclomine [Bentyl] 10 mg PO TID #20 cap 09/17/21 Unknown Rx oxyCODONE /ACETAMINOPHEN [Percocet 1 tab PO BID #8 09/17/21 Unknown Rx 5/325] Allergies Allergy/AdvReac Type Severity Reaction Status Date / Time No Known Allergies Allergy Verified 09/28/21 07:31 ED Review of Systems ROS: Stated complaint: KIDNEY STONES/FLANK PAIN Other details as noted in HPI Constitutional: denies: chills, fever Eyes: denies: eye pain, eye discharge, vision change ENT: denies: ear pain, throat pain Respiratory: denies: cough, shortness of breath, wheezing Cardiovascular: denies: chest pain, palpitations Endocrine: no symptoms reported Gastrointestinal: denies: abdominal pain, nausea, diarrhea Genitourinary: denies: urgency, dysuria, discharge Musculoskeletal: denies: back pain, joint swelling, arthralgia Skin: denies: rash, lesions Neurological: denies: headache, weakness, paresthesias Psychiatric: denies: anxiety, depression Hematological/Lymphatic: denies: easy bleeding, easy bruising ED Past Medical Hx - Past Medical History Previous Medical History?: Yes Hx Hypertension: Yes Hx Diabetes: No Hx Arthritis: Yes Hx Kidney Stones: Yes (in past) Hx Psychiatric Treatment: Yes (panic attacks) Additional medical history: high cholesterol, PSVT - Surgical History Past Surgical History?: Yes Hx Cholecystectomy: Yes Additional Surgical History: Left ear surgery, right upper arm surgery - Social History Smoking Status: Never Smoker - Medications Home Medications: Home Medications Medication Instructions Recorded Confirmed Last Taken Type Losartan Potassium 25 mg PO QDAY 05/12/17 09/17/21 05/11/17 History Simvastatin 20 mg PO QHS 05/12/17 09/17/21 05/11/17 History Venlafaxine Xr [Effexor XR] 75 mg PO QDAY 05/12/17 09/17/21 05/11/17 History Metoprolol [Lopressor TAB] 25 mg PO DAILY 03/27/21 09/17/21 Unknown History Cholecalciferol Vit D3 [Vitamin D3 1,000 unit PO QDAY 09/17/21 09/17/21 Unknown History 1,000 UNIT TAB] Dicyclomine [Bentyl] 10 mg PO TID #20 cap 09/17/21 Unknown Rx Ferrous Sulfate [Iron 325 MG] 325 mg PO QDAY 09/17/21 09/17/21 Unknown History oxyCODONE /ACETAMINOPHEN [Percocet 1 tab PO BID #8 09/17/21 Unknown Rx 5/325] ED Physical Exam - General Limitations: No Limitations General appearance: alert, in distress - Head Head exam: Present: atraumatic, normocephalic - Eye Eye exam: Present: normal appearance - ENT ENT exam: Present: mucous membranes moist - Neck Neck exam: Present: normal inspection - Respiratory Respiratory exam: Present: normal lung sounds bilaterally. Absent: respiratory distress - Cardiovascular Cardiovascular Exam: Present: regular rate, normal rhythm. Absent: systolic murmur, diastolic murmur, rubs, gallop - GI/Abdominal GI/Abdominal exam: Present: soft, tenderness, normal bowel sounds - Extremities Exam Extremities exam: Present: normal inspection - Back Exam Back exam: Present: normal inspection - Neurological Exam Neurological exam: Present: alert, oriented X3 - Psychiatric Psychiatric exam: Present: normal affect, normal mood - Skin Skin exam: Present: warm, dry, intact, normal color. Absent: rash ED Course Vital Signs 09/28/21 09/28/21 09/28/21 07:28 09:40 09:53 Temperature 98.1 F Pulse Rate 61 62 Respiratory 16 13 18 Rate Blood Pressure Blood Pressure 200/65 169/99 [Left] O2 Sat by Pulse 97 98 Oximetry 09/28/21 09/28/21 09/28/21 09:54 10:00 10:30 Temperature Pulse Rate 60 65 Respiratory 13 20 Rate Blood Pressure 172/67 154/64 Blood Pressure [Left] O2 Sat by Pulse 98 98 93 Oximetry 09/28/21 09/28/21 09/28/21 11:00 11:30 12:00 Temperature Pulse Rate 61 62 74 Respiratory 20 19 22 Rate Blood Pressure 152/55 131/55 156/67 Blood Pressure [Left] O2 Sat by Pulse 95 93 96 Oximetry 09/28/21 12:09 Temperature Pulse Rate 74 Respiratory 20 Rate Blood Pressure Blood Pressure 156/67 [Left] O2 Sat by Pulse 96 Oximetry ED Medical Decision Making - Lab Data Result diagrams: 09/28/21 07:46 09/28/21 07:46 - Radiology Data Radiology results: report reviewed, image reviewed - Medical Decision Making work up shwoed uti and real colic 2ry to stone that migrated distally no obsrtuction noted, pain releived pt is pain free willr efer to uroogy Critical care attestation.: If time is entered above; I have spent that time in minutes in the direct care of this critically ill patient, excluding procedure time. ED Disposition Clinical Impression: Renal colic on left side, UTI (urinary tract infection) Disposition: 01 HOME / SELF CARE / HOMELESS Is pt being admited?: No Does the pt Need Aspirin: No Condition: Stable Instructions: Abdominal Pain (ED), Urinary Tract Infection, Adult, [id number], Renal Colic, [id number] Referrals: MARIMAR BOGGS,FAMILY JAZMIN [Other] - 3-5 Days BRIONNA SAWYER MD [Staff Physician] - 3-5 Days
[2021-09-28 13:04] VITALS: BP 147/63
== END 2021-09-28 13:15 | disposition home or self-care (01) ==
LOC: ED 06:29
DX: N20.2 Calculus of kidney with calculus of ureter (principal); N23 Unspecified renal colic; N39.0 Urinary tract infection, site not specified; I10 Essential (primary) hypertension; Z90.49 Acquired absence of other specified parts of digestive tract
CPT/HCPCS: 36415; 74176; 80048; 81001; 85025; 87086; 96361; 96365; 96366; 96375; 99284; J0696; J1885; J2405; J7030; Q0162